=== PATIENT | male | born 1970 | race Caucasian/White ===

== ENCOUNTER → 2016-07-21 | Outpatient (CLI) | payer OTHER ==
[~2016-07-21] MED LIST: CLON2TAB; DEPA500T; DEPA500T2
--- NOTE | 2016-07-21 11:50 | REP ---
Clinical: Trauma. Technique: AP, lateral, bilateral oblique views right first digit. Findings: The osseous structures and joint spaces are intact and normal. There is no evidence for acute fracture or dislocation. Surrounding soft tissues are unremarkable. No subcutaneous emphysema or radiodense foreign body. Impression: No acute fracture or dislocation. Signed by Brendan Schaeffer MD 07/21/2016 11:42 A
== END ==
LOC: M WUC 11:24
PROVIDERS: ATTEND Physician Assistant
DX: S60.011A Contusion of right thumb without damage to nail, initial encounter (principal); X58.XXXA Exposure to other specified factors, initial encounter; Y92.89 Other specified places as the place of occurrence of the external cause; Y93.89 Activity, other specified; Y99.8 Other external cause status

== ENCOUNTER 2016-10-06 18:37 | Emergency (ER) | payer BC, OTHER ==
[~2016-10-06] VITALS: Ht 182.9 cm; Wt 94.3 kg
[~2016-10-06 18:37] MED LIST changes: -DEPA500T2; +DEPA500T2 PO
[2016-10-06 19:21] LABS: BASO # 0.1 K/mm3 (0.0-0.2); BASO % 0.7 % (0.0-1.0); EOS # 0.1 K/mm3 (0.0-0.50); EOS % 1.2 % (0.0-3.0); LARGE UNSTAINED CELL # 0.1 K/mm3 (0.0-0.4); LARGE UNSTAINED CELL % 1.5 % (0.0-4.0); LYMPH # 2.4 K/mm3 (1.5-4.5); LYMPH % 28.9 % (24.0-44.0); MEAN CORPUSCULAR HGB CONC 35.3 g/dl (32.0-36.5); MEAN CORPUSCULAR VOLUME 90.8 fl (80.0-96.0); MONO # 0.5 K/mm3 (0.0-0.8); MONO % 6.2 % (0.0-5.0); NEUTROPHILS # 4.8 K/mm3 (1.8-7.7); NEUTROPHILS % 61.5 % (36.0-66.0); PLATELET COUNT, AUTOMATED 178 k/mm3 (150-450); RED CELL DISTRIBUTION WIDTH 12.4 % (11.5-14.5); WHITE BLOOD COUNT 7.9 K/mm3 (4.0-10.0)
[2016-10-06] MEDS ORDERED: ASPIRIN 325 MG TAB PO ONE (19:30)
[2016-10-06 19:36] LABS: INR 0.92
[2016-10-06 19:41] LABS: ANION GAP 6 MEQ/L (8-16); BLOOD UREA NITROGEN 13 MG/DL (7-18); CALCIUM LEVEL 9.3 MG/DL (8.5-10.1); CARBON DIOXIDE LEVEL 27 MEQ/L (21-32); CHLORIDE LEVEL 110 MEQ/L (98-107); CREATININE FOR GFR 0.83 MG/DL (0.70-1.30); GLOMERULAR FILTRATION RATE > 60.0 (>60); GLUCOSE, FASTING 109 MG/DL (70-105); POTASSIUM SERUM 3.9 MEQ/L (3.5-5.1); SODIUM LEVEL 143 MEQ/L (136-145)
--- NOTE | 2016-10-06 19:49 | REP ---
Clinical: Chest pain. Technique: PA and lateral. Comparison: 10/17/2008. Findings: Mediastinum and cardiac silhouette are normal. Cannot exclude coarsened markings and very subtle patchy lower lobe infiltrates suggesting bronchitis and atelectasis. No effusion. No pneumothorax. Skeletal structures intact. Impression: Findings suggest bronchitis and atelectasis. Signed by Brendan Schaeffer MD 10/06/2016 07:41 P
[2016-10-06] MEDS ORDERED: ASPI81TA85 PO (20:50)
[2016-10-06 20:53] VITALS: BP 123/73
--- NOTE | 2016-10-07 16:36 | ECGEPIP ---
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
== END 2016-10-06 21:05 | disposition home or self-care (01) ==
LOC: M ED 19:44
DX: R07.89 Other chest pain (principal)

== ENCOUNTER 2016-11-09 19:25 | Emergency (ER) | payer OTHER ==
[~2016-11-09] VITALS: Ht 182.9 cm; Wt 93.0 kg
[~2016-11-09 19:25] MED LIST changes: +ASPI81TA85 PO
[2016-11-09] MEDS ORDERED: KETOROLAC 30 MG/ML VIAL (J1885) IV ONE (20:00)
--- NOTE | 2016-11-09 21:00 | REPUSA ---
CT of the lumbar spine without contrast Clinical history: Pain. Technique: Multiple axial CT images were obtained through the lumbar spine without administration of contrast. Coronal and sagittal 3-D reconstructed images were also obtained. Findings: The lumbar vertebral bodies are in satisfactory positioning and alignment. No fractures or dislocatio ns are demonstrated. Intervertebral disc spaces are well-maintained. There is no evidence of facet jacobson bluxation. The neural foramen appear grossly patent. The spinal canal demonstrates normal caliber and contour without evidence of spinal stenosis. The surrounding soft tissues are within normal limits. Impression: Unremarkable CT examination of the lumbar spine.
[2016-11-09] MEDS ORDERED: KETO10TAB PO (21:05)
[2016-11-09] MEDS ORDERED: HYDROmorphone HCL 1 MG/ML SYRINGE (J1170) IM ONE (21:30)
[2016-11-09 22:00] VITALS: BP 127/69
== END 2016-11-09 22:02 | disposition home or self-care (01) ==
LOC: EDBD 19:25 → M ED 20:12
DX: S39.012A Strain of muscle, fascia and tendon of lower back, initial encounter (principal); X50.0XXA Overexertion from strenuous movement or load, initial encounter; Y92.018 Other place in single-family (private) house as the place of occurrence of the external cause; Y93.89 Activity, other specified; Y99.8 Other external cause status; R56.9 Unspecified convulsions; Z79.899 Other long term (current) drug therapy
CPT/HCPCS: 72131; 96372; 96374; 99283; J1170; J1885

== ENCOUNTER 2016-12-23 17:18 | Observation (INO) | payer OTHER ==
[~2016-12-23] VITALS: Ht 188 cm; Wt 90.5 kg
[~2016-12-23 17:18] MED LIST changes: +KETO10TAB PO
[2016-12-23] MEDS ORDERED: ALEV220C2 PO (17:40)
[2016-12-23] MEDS ORDERED: TIZANIDINE (17:40)
[2016-12-23 18:26] LABS: BASO % 0.6 % (0.0-1.0); EOS # 0.1 K/mm3 (0.0-0.50); EOS % 0.9 % (0.0-3.0); LARGE UNSTAINED CELL # 0.1 K/mm3 (0.0-0.4); LARGE UNSTAINED CELL % 1.3 % (0.0-4.0); LYMPH # 1.7 K/mm3 (1.5-4.5); LYMPH % 21.7 % (24.0-44.0); MEAN CORPUSCULAR HEMOGLOBIN 32.2 pg (27.0-33.0); MEAN CORPUSCULAR HGB CONC 34.6 g/dl (32.0-36.5); MEAN CORPUSCULAR VOLUME 92.9 fl (80.0-96.0); MONO # 0.5 K/mm3 (0.0-0.8); MONO % 6.7 % (0.0-5.0); NEUTROPHILS # 5.3 K/mm3 (1.8-7.7); NEUTROPHILS % 68.8 % (36.0-66.0); PLATELET COUNT, AUTOMATED 161 k/mm3 (150-450); RED CELL DISTRIBUTION WIDTH 12.7 % (11.5-14.5); WHITE BLOOD COUNT 7.7 K/mm3 (4.0-10.0)
[2016-12-23 18:38] LABS: BLOOD UREA NITROGEN 15 MG/DL (7-18); CALCIUM LEVEL 8.7 MG/DL (8.5-10.1); CHLORIDE LEVEL 109 MEQ/L (98-107); CREATININE FOR GFR 0.98 MG/DL (0.70-1.30); GLUCOSE, FASTING 110 MG/DL (70-105); POTASSIUM SERUM 3.7 MEQ/L (3.5-5.1); SODIUM LEVEL 139 MEQ/L (136-145)
[2016-12-23] MEDS: NS 1,000 ML IV SCH (18:47)
[2016-12-23] MEDS ORDERED: VALPROATE SOD INJ 500 MG in D5W 50 ML IV ONE (19:00)
[2016-12-23] MEDS ORDERED: LORazepam 2 MG/ML VIAL (J2060) As Ordered ONE (19:06)
[2016-12-23] MEDS ORDERED: LORazepam 2 MG/ML VIAL (J2060) IV STA (19:11)
[2016-12-23] MEDS ORDERED: VALPROATE SOD INJ 1,000 MG in D5W 50 ML IV ONE (19:15)
[2016-12-23] MEDS ORDERED: DIVA500T3 PO (19:28)
[2016-12-23] MEDS ORDERED: TIZA4CAP3 PO (19:28)
[2016-12-23] MEDS ORDERED: KETO10TAB PO (19:28)
--- NOTE | 2016-12-23 19:43 | ECGEPIP ---
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 RBBB SIMILAR TO 10/06/16 Electronically Signed On 12-23-2016 19:43:27 EDT by Hood Mock
[2016-12-23] MEDS ORDERED: LORazepam 2 MG/ML VIAL (J2060) IV PRN (20:30)
[2016-12-23] MEDS ORDERED: tiZANidine 4 MG TAB PO PRN (20:30)
[2016-12-23] MEDS ORDERED: KETOROLAC TROMETHAMINE 10 MG TAB PO PRN (20:30)
--- NOTE | 2016-12-23 20:31 | REP ---
Head CT without contrast: History: CVA. Comparison study: December 20, 2009. CT findings: Bone window settings demonstrate an intact bony calvarium. There is no evidence of skull fracture or incidental bony calvarial lesion. The visualized paranasal sinuses appear clear. No intraorbital abnormality is seen. On soft tissue window setting images; the lateral, third, and fourth ventricles are normal in size and position. Rogers-white differentiation pattern is normal above and below the tentorium. There are is no evidence of intracranial hemorrhage. No mass, edema, infarction, or midline shift is seen. No extra-axial fluid collection is appreciated. Impression: Negative noncontrast head CT. Signed by Medhat Judd MD 12/24/2016 07:42 A
[2016-12-23 20:32] LABS: ANION GAP 9 MEQ/L (8-16); CARBON DIOXIDE LEVEL 21 MEQ/L (21-32)
--- NOTE | 2016-12-23 20:33 | REP ---
Maxillofacial CT study without contrast: History: CVA. Comparison CT study is from December 20, 2009. Technique: Helical scanning is acquired. 3 mm axial images are reformatted. Coronal and sagittal multiplanar reformation images are generated. CT findings: Maxillary, ethmoid, frontal and sphenoid sinuses are clear. Mastoid aeration is normal and symmetric. No fracture is seen. Bony nasal septum deviates to the right with a septal beak. Nasal turbinate soft tissues are symmetric. No intraorbital abnormality is seen. No periorbital soft tissue abnormalities observed. There is some soft tissue swelling anteriorly over the maxillary teeth in the region of the upper lip. Impression: Rightward nasal septal deviation. Soft tissue swelling in the region of the upper lip to the right of midline. No fracture. Otherwise unremarkable maxillofacial CT study. Signed by Medhat Judd MD 12/24/2016 07:42 A
--- NOTE | 2016-12-23 20:38 | REP ---
Sitting AP chest x-ray: Single view. History: CVA. Comparison chest x-ray October 06, 2016. Findings: EKG monitoring electrodes overlie the chest. Lungs are well inflated and clear. Cardiomediastinal silhouette is unremarkable. No bony abnormalities seen. Pleural angles are sharp. Impression: No active disease. Signed by Medhat Judd MD 12/24/2016 07:43 A
[2016-12-23] MEDS ORDERED: DIVALPROEX 500 MG TAB PO SCH (21:00)
[2016-12-23 22:05] VITALS: BP 157/76
--- NOTE | 2016-12-23 22:45 | HPE ---
DATE OF ADMISSION: 12/23/2016 PRIMARY CARE PROVIDER: Zoie Maravilla, nurse practitioner. NEUROLOGY CONSULTED: Dr. Agudelo. CHIEF COMPLAINT: Seizure. HISTORY OF PRESENT ILLNESS: This is a 46-year-old male patient with underlying medical history of seizure disorder diagnosed when patient was 18 years old, depression, smoking. The patient also sees Dr. Vladislav Terry. As per patient, the patient was outside, traveling, working for a week and has not been taking the patient's Depakote. Subsequently the patient returned home and was shopping with the . The went in to put back the groceries, and came out and saw the patient fall down on the driveway pavement with blood around his face, with significant blood around the nose and mouth. The patient has a history of nose bone fracture, and the episode only lasted about 2-3 minutes with urinary incontinence, tongue biting. No foaming. Time was around 4:30 when it happened. Subsequently the patient was brought to the hospital. In the emergency room (ER), the patient had another episode, was given Depakote intravenous (IV). Case was discussed with Dr. Agudelo. CT scan of the maxillofacial and head shows soft tissue swelling but no fractures. The patient is postictal. Given Ativan in the emergency room 2 mg, and 1500 mg of Depakote IV. The patient denies any chest pain, pressure or discomfort. Reported facial pain, tongue pain. Denies any vision change or any weakness. Last seizure was six years ago. The patient has been well controlled up until now. Dr. Terry has been decreasing the patient's Depakote from 2000 mg to 1000 a year ago, and the patient tolerated the dose for the past year, but has not taken any Depakote for one week. Denies any abdominal pain, fevers, chills, nausea or vomiting. No respiratory distress. ALLERGIES: No known drug allergies. PAST MEDICAL HISTORY: 1. Seizure disorder. 2. Depression. 3. Smoker. PAST SURGICAL HISTORY: 1. Ear surgery. 2. Appendectomy. SOCIAL HISTORY: The patient drinks 1-2 beers every two weeks, smokes one pack per day for many years. Denies any other illicit drug use. FAMILY HISTORY: No family history of neurological disorder. REVIEW OF SYSTEMS: Limited secondary to patient's mental status. Reported facial pain due to trauma, tongue pain, urinary incontinence. All other review of systems are negative. HOME MEDICATIONS: - Aleve 220 mg by mouth twice a day as needed - Depakote 1000 mg by mouth at bedtime - ketorolac 10 mg by mouth every eight hours as needed - tizanidine 4 mg by mouth three times a day as needed PHYSICAL EXAMINATION: VITAL SIGNS: Temperature 99.1, pulse 100, respirations 12, blood pressure 118/68, pulse oximetry 95% on room air. GENERAL: Patient alert and oriented times three, but is currently postictal after the seizure episode in the emergency room. HEENT: Swelling around the eye with bruising all over the patient's face bilaterally. Dried blood around the patient's nose and around the patient's mouth. Tongue biting. NECK: Supple. PULMONARY: Bilaterally clear to auscultation. CARDIAC: Regular rate and rhythm. ABDOMEN: Soft, nontender, nondistended. Positive bowel sounds. EXTREMITIES: No edema bilateral lower extremities. Able to move all four extremities. NEUROLOGIC: Cranial nerves II through XII grossly intact. No focal deficits. LABORATORY DATA: WBC 7.7, hemoglobin and hematocrit 15.4 over 44.5, platelets 161. Chemistry: Sodium 139, potassium 3.7, chloride 109, bicarbonate 21, BUN 15, creatinine 0.98. CK is 1193. Valproic acid 3.3. IMAGING: CT scan of the head negative. CT scan of maxillofacial shows rightward nasal septal deviation; as per family was chronic. Soft tissue swelling. ASSESSMENT AND PLAN: This is a 46-year-old male patient with underlying medical history of depression, seizure disorder, smoker, presented with two episodes of seizure. 1. Seizure, likely secondary to poor medication compliance. IV Depakote given in the emergency department (ED). Will continue Depakote 1000 mg by mouth at bedtime, electroencephalogram (EEG), neurology consulted. Seizure precautions. Fall precautions. Aspiration precautions. 2. Rhabdomyolysis likely secondary to seizure. IV fluids. Followup creatine kinase (CK). 3. Depression. Continue current medication. 4. Smoking. Counseling provided, refused nicotine patch. 5. Deep venous thrombosis (DVT) prophylaxis. Avoid pharmacological anticoagulation given significant facial injuries and tongue biting, with significant bleeding. Venodyne sequential compression devices. DISPOSITION: Pending clinical improvement. Neurology consultation.
[2016-12-23 23:51] VITALS: BP 128/75
[2016-12-24] MEDS: NS 1,000 ML IV SCH (03:46)
[2016-12-24 04:00] VITALS: BP 104/66
[2016-12-24 05:31] LABS: MEAN CORPUSCULAR HEMOGLOBIN 32.2 pg (27.0-33.0); MEAN CORPUSCULAR HGB CONC 34.8 g/dl (32.0-36.5); MEAN CORPUSCULAR VOLUME 92.7 fl (80.0-96.0); WHITE BLOOD COUNT 8.7 K/mm3 (4.0-10.0)
[2016-12-24 05:46] LABS: ANION GAP 8 MEQ/L (8-16); BLOOD UREA NITROGEN 12 MG/DL (7-18); CALCIUM LEVEL 8.2 MG/DL (8.5-10.1); CARBON DIOXIDE LEVEL 22 MEQ/L (21-32); CHLORIDE LEVEL 111 MEQ/L (98-107); CREATININE FOR GFR 0.79 MG/DL (0.70-1.30); GLOMERULAR FILTRATION RATE > 60.0 (>60); GLUCOSE, FASTING 90 MG/DL (70-105); MAGNESIUM LEVEL 2.1 MG/DL (1.8-2.4); POTASSIUM SERUM 3.9 MEQ/L (3.5-5.1); SODIUM LEVEL 141 MEQ/L (136-145)
[2016-12-24 08:00] VITALS: BP 125/77; O2SAT 98
--- NOTE | 2016-12-24 16:26 | DS.PDOC ---
Discharge Summary General Date of Admission Dec 23, 2016 at 20:21 Date of Discharge 12/24/16 Primary Care Physician: RAUDEL LAMA Attending Physician: LEONARDO MATHEWS MD Specialist/Consultants Involve: AJIT AGUDELO MD Discharge Summary Primary care providers: NORMAN Macdonald. Vladislav Terry M.D. PROCEDURES PERFORMED DURING STAY: None ADMITTING DIAGNOSES: 1. Seizure, likely secondary to poor medicine compliance. 2. Rhabdomyolysis. 3. Depression. DISCHARGE DIAGNOSES: 1. Seizure, likely secondary to poor medication compliance.. 2. Rhabdomyolysis. 3. Depression. COMPLICATIONS/CHIEF COMPLAINT: Seizure. HISTORY OF PRESENT ILLNESS: Patient is a 46-year-old male with past medical history is difficult for her seizure disorder, depression, to contain addiction presents to the ER after having a seizure episode this afternoon. Patient had been diagnosed with a seizure disorder when he was 18 years old. Patient had recently obtained a new job. He been traveling for the past week for work. Patient had not brought his Depakote with them. He had not taken it for the past week. Patient was regularly taking prior to this. Patient was outside in the driveway. Patient's was in the hospital and why groceries and when she cannot size she saw the patient had fallen down on the driveway pavement and had blood around his face. Patient has history of bone fractures and the episode lasted a couple minutes with urinary incontinence and tongue biting. No foaming at the mouth. He was around 4:30 afternoon. Patient was then brought to the ER. Patient had another episode in the ER and was given IV Depakote. This case was consulted with Dr. Agudelo, neurologist. CT scan of the face and head showed soft tissue swelling but no fractures. Patient was post ictal upon admission. Patient was also given Ativan in the ER. Patient denied any vision changes or weakness. Last reported seizure was approximately 6-7 years ago. Patient well controlled on medication until now. HOSPITAL COURSE: Patient was admitted and started the workup for his seizures. Patient was placed on thousand milligrams oral Depakote. Patient was also scheduled to be given Ativan when necessary and Toradol when necessary for pain. Dr. Agudelo was counseled in the ER. Plan was to have Dr. Agudelo assess the patient's while in the hospital. Patient did not have any further seizure activity overnight. Patient did have elevated creatine kinase on labs. Patient had rhabdomyolysis likely secondary to seizure and was started on IV fluids. Patient's home medication for depression was continued. Patient became agitated later in the morning and requested to leave the hospital. The risks and benefits were discussed about staying in the hospital versus leaving. Patient agreed to understand the risks and still wanted to leave anyway. Patient signed an AMA agreements and left the hospital. Patient was told about the risk of driving post seizures and responsibility. Patient agreed to return to the ER if symptoms worsen. DISCHARGE MEDICATIONS: Please see below. ALLERGIES: Please see below. PHYSICAL EXAMINATION ON DISCHARGE: VITAL SIGNS: Please see below. GENERAL: Comfortable. No acute respiratory distress. Agitated about being in the hospital. HEENT: Ecchymosis on nasal bridge. Dry blood around patient's mouth and nose. Tongue shows evidence of bite on right side. Some swelling on his face bilaterally. NECK: Supple. No lymphadenopathy. CARDIOVASCULAR EXAMINATION: Normal S1 and S2. No clicks rubs gallops or murmurs. RESPIRATORY EXAMINATION: Clear to auscultation. No wheezing or rales. ABDOMINAL EXAMINATION: Bowel sounds heard auscultation. No tenderness to palpation. EXTREMITIES: No lotion any edema. Radial pulses 2 out of 4 bilaterally. SKIN: No new rashes or lesions. NEUROLOGICAL EXAMINATION: Speech intact. Cranial nerves II through XII intact. [id number] intact. PSYCHIATRIC EXAMINATION: Agitated. LABORATORY DATA: Please see below. IMAGING: Maxillofacial CT scan showed rightward nasal septal deviation. Soft tissue swelling in the region of the upper lip to the right of midline. No fracture. Otherwise unremarkable maxillofacialCT study. Head CT showed negative noncontrast head CT. Chest radiograph showed no active disease. PROGNOSIS: AGAINST MEDICAL ADVICE ACTIVITY: As tolerated. Patient was cautioned about driving. DIET: As tolerated. DISCHARGE PLAN: AGAINST MEDICAL ADVICE DISPOSITION: Against Medical Advice. DISCHARGE INSTRUCTIONS: 1. AGAINST MEDICAL ADVICE 2. Patient is return to ER if symptoms worsen DISCHARGE CONDITION: AGAINST MEDICAL ADVICE TIME SPENT ON DISCHARGE: Greater than 30 minutes. Vital Signs/I&Os Vital Signs Date Time Temp Pulse Resp B/P (MAP) Pulse Ox O2 Delivery O2 Flow Rate FiO2 12/24/16 08:30 96 Room Air 12/24/16 08:00 99.8 104 18 125/77 (93) 2.0 I&O- Last 24 Hours up to 6 AM 12/24/16 06:00 Intake Total 1555 ml Balance 1555 ml Laboratory Data Labs 24H Laboratory Tests 2 12/23/16 17:42: White Blood Count 7.7, Red Blood Count 4.79, Hemoglobin 15.4, Hematocrit 44.5, Mean Corpuscular Volume 92.9, Mean Corpuscular Hemoglobin 32.2, Mean Corpuscular Hemoglobin Concent 34.6, Red Cell Distribution Width 12.7, Platelet Count 161, Neutrophils (%) (Auto) 68.8H, Lymphocytes (%) (Auto) 21.7L, Monocytes (%) (Auto) 6.7H, Eosinophils (%) (Auto) 0.9, Basophils (%) (Auto) 0.6 , Neutrophils # (Auto) 5.3, Lymphocytes # (Auto) 1.7, Monocytes # (Auto) 0.5, Eosinophils # (Auto) 0.1, Basophils # (Auto) 0.0, Large Unclassified Cells % 1.3 , Large Unclassified Cells # 0.1, Prothrombin Time 13.3, Prothromb Time International Ratio 1.00, Activated Partial Thromboplast Time 22.8L, Anion Gap 9 , Blood Urea Nitrogen 15, Creatinine 0.98, Sodium Level 139, Potassium Level 3.7 , Chloride Level 109H, Carbon Dioxide Level 21, Calcium Level 8.7, Total Creatine Kinase 1193H, Creatine Kinase MB 3.7H, Creatine Kinase MB Relative Index 0.31, Troponin I < 0.02, Valproic Acid (Depakene) Level 3.3L 12/23/16 23:46: Total Creatine Kinase 1153H, Creatine Kinase MB 8.4H, Creatine Kinase MB Relative Index 0.72, Troponin I 0.04# 12/24/16 04:53: Anion Gap 8, Blood Urea Nitrogen 12, Creatinine 0.79, Sodium Level 141, Potassium Level 3.9, Chloride Level 111H, Carbon Dioxide Level 22, Calcium Level 8.2L, Total Creatine Kinase 1157H, Creatine Kinase MB 10.7H, Creatine Kinase MB Relative Index 0.92, Troponin I 0.02#, Glomerular Filtration Rate > 60.0, Magnesium Level 2.1 CBC/BMP Laboratory Tests 12/23/16 17:42 Red Blood Count 4.79, Mean Corpuscular Volume 92.9, Mean Corpuscular Hemoglobin 32.2, Mean Corpuscular Hemoglobin Concent 34.6, Red Cell Distribution Width 12.7 , Neutrophils (%) (Auto) 68.8 H, Lymphocytes (%) (Auto) 21.7 L, Monocytes (%) ( Auto) 6.7 H, Eosinophils (%) (Auto) 0.9, Basophils (%) (Auto) 0.6, Neutrophils # (Auto) 5.3, Lymphocytes # (Auto) 1.7, Monocytes # (Auto) 0.5, Eosinophils # ( Auto) 0.1, Basophils # (Auto) 0.0, Calcium Level 8.7, Total Creatine Kinase 1193 H 12/24/16 04:53 Red Blood Count 4.41, Mean Corpuscular Volume 92.7, Mean Corpuscular Hemoglobin 32.2, Mean Corpuscular Hemoglobin Concent 34.8, Red Cell Distribution Width 13.0 , Calcium Level 8.2 L, Total Creatine Kinase 1157 H Discharge Medications Scheduled Divalproex Sodium (Divalproex Sodium Dr) 500 Mg Tab, 1,000 MG PO QHS, (Reported) Scheduled PRN (Aleve) 220 Mg Cap, 220 MG PO BID PRN for PAIN OR FEVER, (Reported) Ketorolac Tromethamine (Ketorolac Tromethamine) 10 Mg Tab, 10 MG PO Q8H PRN for PAIN, (Reported) Tizanidine Hydrochloride (Tizanidine HCl) 4 Mg Cap, 4 MG PO TID PRN for SPASMS, (Reported) Allergies Coded Allergies: No Known Drug Allergy (Verified Allergy, Unknown, 10/09/12) GME ATTESTATION GME ATTESTATION My preceptor for this patient encounter was Dr. Mathews and he was physically present in the building during the encounter and was fully available. As needed , all aspects of the patient interview, examination, medical decision making process, and medical care plan development were reviewed and approved by the preceptor. Preceptor is aware and concurs with the plan as stated in the body of this note and will attest to such by his/her co-signature. LEONARDO PAYNE DO Dec 24, 2016 16:26
== END 2016-12-24 10:47 | disposition left against medical advice (07) ==
LOC: M ED 18:29 → M ED INP 20:21 → M PCU 20:47 → M ED INP 21:13 → M PCU 22:01
PROVIDERS: ADMIT Hospitalist; ATTEND Internal Medicine
DX: G40.909 Epilepsy, unspecified, not intractable, without status epilepticus (principal); M62.82 Rhabdomyolysis; F32.9 Major depressive disorder, single episode, unspecified; F17.210 Nicotine dependence, cigarettes, uncomplicated; Z91.138 Patient's unintentional underdosing of medication regimen for other reason; Z79.899 Other long term (current) drug therapy

== ENCOUNTER → 2019-04-01 | Outpatient (CLI) | payer BC, OTHER, SELFPAY ==
[~2019-04-01] MED LIST changes: +ALEV220C2 PO; +DIVA500T94 PO; +TIZA4CAP PO; +TIZANIDINE
[2019-04-01 12:54] LABS: BASO # 0.1 10^3/uL (0.0-0.2); BASO % 1.1 % (0.0-1.0); EOS # 0.1 10^3/uL (0.0-0.5); EOS % 1.1 % (0.0-3.0); HEMATOCRIT 47.8 % (42.0-52.0); HEMOGLOBIN 16.6 g/dl (13.5-17.5); LYMPH # 2.5 10^3/uL (1.5-5.0); LYMPH % 35.2 % (24.0-44.0); MEAN CORPUSCULAR HEMOGLOBIN 31.6 pg (27.0-33.0); MEAN CORPUSCULAR HGB CONC 34.7 g/dl (32.0-36.5); MONO # 0.6 10^3/uL (0.0-0.8); MONO % 7.8 % (0.0-5.0); NEUTROPHILS # 3.8 10^3/uL (1.5-8.5); NEUTROPHILS % 54.4 % (36.0-66.0); PLATELET COUNT, AUTOMATED 186 10^3/uL (150-450); RED BLOOD COUNT 5.25 10^6/uL (4.30-6.10); WHITE BLOOD COUNT 7.1 10^3/uL (4.0-10.0)
[2019-04-01 13:21] LABS: ALBUMIN 3.7 GM/DL (3.2-5.2); ALT/SGPT 24 U/L (12-78); BILIRUBIN,TOTAL 0.6 MG/DL (0.2-1.0); BLOOD UREA NITROGEN 13 MG/DL (7-18); C REACTIVE PROTEIN QUANTITATIV < 0.30 MG/DL (0.00-0.30); CARBON DIOXIDE LEVEL 25 MEQ/L (21-32); CHLORIDE LEVEL 108 MEQ/L (98-107); CREATININE FOR GFR 0.87 MG/DL (0.70-1.30); FREE T4 0.83 NG/DL (0.76-1.46); GLOMERULAR FILTRATION RATE > 60.0 (>60); GLUCOSE, FASTING 88 MG/DL (70-100); POTASSIUM SERUM 4.5 MEQ/L (3.5-5.1); SODIUM LEVEL 141 MEQ/L (136-145); TOTAL PROTEIN 7.2 GM/DL (6.4-8.2)
[2019-04-01 13:32] LABS: ERYTHROCYTE SEDIMENTATION RATE 1 mm/hr (0-15)
--- NOTE | 2019-04-02 03:47 | REP ---
Clinical: Shortness of breath . Comparison: 10/06/2016 . Technique: PA and lateral. Findings: The mediastinum and cardiac silhouette are normal. The lung haile are clear and without acute consolidation, effusion, or pneumothorax. The skeletal structures are intact and normal. Impression: 1. No acute cardiopulmonary process. Electronically Signed by Brendan Schaeffer MD 04/02/2019 03:38 A
[2019-04-03 00:06] LABS: EBV AB TO NUCLEAR ANTIGEN <18.0 U/mL (0.0-17.9); EBV VIRAL CAPSID AG IgG >600.0 U/mL (0.0-17.9); EBV VIRAL CAPSID AG IgM <36.0 U/mL (0.0-35.9); Lyme Disease IgG/IgM Antibodie <0.91 ISR (0.00-0.90); Lyme Disease IgM Ab Quantitati <0.80 index (0.00-0.79)
== END ==
LOC: M WUC 10:20
PROVIDERS: ATTEND Physician Assistant
DX: R53.83 Other fatigue (principal); R06.02 Shortness of breath

== ENCOUNTER 2019-10-04 12:06 | Emergency (ER) | payer BC ==
[~2019-10-04] VITALS: Ht 182.9 cm; Wt 97.9 kg
[2019-10-04 12:07] VITALS: BP 149/79
[2019-10-04] MEDS ORDERED: DIVA250T67 (12:19)
[2019-10-04] MEDS ORDERED: ACETAMINOPHEN 325 MG TAB PO ONE (12:45)
--- NOTE | 2019-10-04 14:42 | REP ---
CT BRAIN WITHOUT CONTRAST: HISTORY: Injury in a fall. 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 No skull fracture is seen but there is a sizable hematoma in the right supraorbital region. Bony calvarium is intact. Visualized paranasal sinuses are clear. There is minimal mucosal thickening in the maxillary sinuses. No intraorbital hematoma is seen. On soft tissue window settings, lateral, third, fourth ventricles are normal in size and position. Rogers-white differentiation pattern is normal above below the tentorium. There is no evidence of intracranial hemorrhage. There is no evidence of contusion, mass, extra-axial fluid collection, or midline shift. IMPRESSION: Right supraorbital soft tissue hematoma. No skull fracture or intracranial injury seen. Electronically Signed by Medhat Judd MD 10/04/2019 02:51 P
--- NOTE | 2019-10-04 14:43 | REP ---
MAXILLOFACIAL CT STUDY WITHOUT CONTRAST: HISTORY: Pain and swelling after a fall. FINDINGS: There are mild areas of mucosal thickening affecting the maxillary sinuses bilaterally. The visualized paranasal sinuses are otherwise clear. Mastoid air cells are under pneumatized developmentally. No intraorbital hematoma is seen. A right periorbital scalp hematoma is seen inferior to and superior to the right orbit. Ocular globes are normal and symmetric. There is no evidence of medial or inferior wall blowout fracture. Orbital margins appear intact. Bony nasal septum is intact and deviates to the right with a septal beak. No nasal bone fracture is seen. Inferior maxillary spine appears intact. IMPRESSION: No facial fractures seen. Right periorbital and preseptal hematoma. Electronically Signed by Medhat Judd MD 10/04/2019 02:51 P
== END 2019-10-04 13:28 | disposition home or self-care (01) ==
LOC: M ED 12:06
DX: S00.11XA Contusion of right eyelid and periocular area, initial encounter (principal); W19.XXXA Unspecified fall, initial encounter; Y92.9 Unspecified place or not applicable; Y93.89 Activity, other specified; Y99.9 Unspecified external cause status; R56.9 Unspecified convulsions; K21.9 Gastro-esophageal reflux disease without esophagitis; F41.9 Anxiety disorder, unspecified; F32.9 Major depressive disorder, single episode, unspecified; M54.30 Sciatica, unspecified side; F17.200 Nicotine dependence, unspecified, uncomplicated; Z88.8 Allergy status to other drugs, medicaments and biological substances

== ENCOUNTER → 2019-10-07 | Outpatient (CLI) | payer BC ==
[~2019-10-07] MED LIST changes: +DIVA250T67
[2019-10-07 11:23] LABS: BASO # 0.1 10^3/uL (0.0-0.2); BASO % 0.9 % (0.0-1.0); EOS # 0.1 10^3/uL (0.0-0.5); EOS % 0.9 % (0.0-3.0); HEMATOCRIT 48.7 % (42.0-52.0); LYMPH # 2.2 10^3/uL (1.5-5.0); LYMPH % 32.8 % (24.0-44.0); MEAN CORPUSCULAR HEMOGLOBIN 32.4 pg (27.0-33.0); MEAN CORPUSCULAR HGB CONC 34.9 g/dl (32.0-36.5); MEAN CORPUSCULAR VOLUME 92.9 fl (80.0-96.0); MONO # 0.6 10^3/uL (0.0-0.8); MONO % 8.6 % (0.0-5.0); NEUTROPHILS # 3.8 10^3/uL (1.5-8.5); NEUTROPHILS % 56.5 % (36.0-66.0); PLATELET COUNT, AUTOMATED 211 10^3/uL (150-450); RED BLOOD COUNT 5.24 10^6/uL (4.30-6.10); WHITE BLOOD COUNT 6.7 10^3/uL (4.0-10.0)
[2019-10-07 11:37] LABS: BLOOD UREA NITROGEN 11 MG/DL (7-18); CARBON DIOXIDE LEVEL 28 MEQ/L (21-32); CHLORIDE LEVEL 108 MEQ/L (98-107); CREATININE FOR GFR 0.79 MG/DL (0.70-1.30); GLOMERULAR FILTRATION RATE > 60.0 (>60); GLUCOSE, FASTING 81 MG/DL (70-100); POTASSIUM SERUM 4.4 MEQ/L (3.5-5.1); SODIUM LEVEL 140 MEQ/L (136-145)
[2019-10-07 11:38] LABS: ALBUMIN 3.8 GM/DL (3.2-5.2); ALT/SGPT 31 U/L (12-78); BILIRUBIN,TOTAL 0.5 MG/DL (0.2-1.0); CALCIUM LEVEL 9.2 MG/DL (8.5-10.1); CHOLESTEROL LEVEL 164 MG/DL (<200); FREE T4 1.04 NG/DL (0.76-1.46); HDL CHOLESTEROL 31 MG/DL (>40); LDL CHOLESTEROL 96 MG/DL (<100); NON-HDL-C 133 MG/DL; TOTAL PROTEIN 7.3 GM/DL (6.4-8.2); TRIGLYCERIDES LEVEL 185 MG/DL (<150); VALPROIC ACID (DEPAKOTE) 98.3 UG/ML (50.0-100.0)
[2019-10-08 14:06] LABS: PSA TOTAL 0.8 ng/mL (0.0-4.0)
== END ==
LOC: M LRY 09:06
PROVIDERS: ATTEND Physician Assistant
DX: Z12.5 Encounter for screening for malignant neoplasm of prostate (principal); Z13.220 Encounter for screening for lipoid disorders; R53.83 Other fatigue; G40.409 Other generalized epilepsy and epileptic syndromes, not intractable, without status epilepticus

== ENCOUNTER → 2019-12-09 | Outpatient (CLI) | payer BC | LOC: M LRY 15:52 | PROVIDERS: ATTEND Physician Assistant | DX: L56.8 Other specified acute skin changes due to ultraviolet radiation (principal) ==

== ENCOUNTER 2020-01-13 00:56 | Inpatient (IN) | payer BC ==
[~2020-01-13] VITALS: Ht 182.9 cm; Wt 96.6 kg
[~2020-01-13 00:56] MED LIST changes: -ASPI81TA85 PO; +ASPI81TA86 PO; -DIVA250T67; +DIVA250T67 PO
[2020-01-13 01:24] LABS: HEMATOCRIT 47.9 % (42.0-52.0); HEMOGLOBIN 16.5 g/dl (13.5-17.5); MEAN CORPUSCULAR HEMOGLOBIN 31.7 pg (27.0-33.0); MEAN CORPUSCULAR HGB CONC 34.4 g/dl (32.0-36.5); MEAN CORPUSCULAR VOLUME 92.1 fl (80.0-96.0); PLATELET COUNT, AUTOMATED 184 10^3/uL (150-450); WHITE BLOOD COUNT 7.4 10^3/uL (4.0-10.0)
[2020-01-13 02:04] LABS: ACETAMINOPHEN LEVEL < 2.0 UG/ML (10.0-30.0); ALBUMIN 3.8 GM/DL (3.2-5.2); ALT/SGPT 32 U/L (12-78); AMPHETAMINES LEVEL URINE NEGATIVE (NEGATIVE); BARBITURATES URINE NEGATIVE (NEGATIVE); BENZODIAZEPINES URINE NEGATIVE (NEGATIVE); BILIRUBIN,DIRECT < 0.1 MG/DL (0.0-0.2); BILIRUBIN,TOTAL 0.2 MG/DL (0.2-1.0); BLOOD UREA NITROGEN 12 MG/DL (7-18); CALCIUM LEVEL 8.7 MG/DL (8.5-10.1); CANNABINOIDS URINE NEGATIVE (NEGATIVE); CARBON DIOXIDE LEVEL 21 MEQ/L (21-32); CHLORIDE LEVEL 112 MEQ/L (98-107); COCAINE METABOLITE URINE NEGATIVE (NEGATIVE); CREATININE FOR GFR 0.73 MG/DL (0.70-1.30); ETHYL ALCOHOL (ETHANOL) 0.005 % (0.000-0.010); GLOMERULAR FILTRATION RATE > 60.0 (>60); GLUCOSE, FASTING 104 MG/DL (70-100); METHADONE URINE NEGATIVE (NEGATIVE); OPIATES URINE NEGATIVE (NEGATIVE); PHENCYCLIDINE URINE NEGATIVE (NEGATIVE); POTASSIUM SERUM 4.5 MEQ/L (3.5-5.1); SALICYLATE LEVEL 3.7 MG/DL (5.0-30.0); SODIUM LEVEL 140 MEQ/L (136-145); TOTAL PROTEIN 7.5 GM/DL (6.4-8.2); VALPROIC ACID (DEPAKOTE) 73.7 UG/ML (50.0-100.0)
[2020-01-13] MEDS ORDERED: MAALOX 30 ML SUSP *UDC PO PRN (04:15)
[2020-01-13] MEDS ORDERED: MOM 30ML SUSPENSION UDC PO PRN (04:15)
[2020-01-13] MEDS ORDERED: ACETAMINOPHEN TAB 650MG DOSE (2X325MG) PO PRN (04:15)
[2020-01-13] MEDS ORDERED: traZODone 50 MG TAB PO PRN (04:15)
[2020-01-13] MEDS ORDERED: ALEV220T22 PO (05:01)
[2020-01-13 05:22] VITALS: BP 138/87
--- NOTE | 2020-01-13 09:25 | MHHPEPDOC ---
[facility] History & Physical History and Physical DATE OF ADMISSION: Jan 13, 2020 at 04:12 Jose Antonio presents today for concerns regarding his depression. He reports that he was intoxicated and threatened to commit suicide. He had his first consultation with [facility] concerning his agitation. He reports that he experiences many nightmares, and he is unaware of what the dream is. MEDICATIONS: He reports that he taken Lexapro but notes that it upset his stomach, and he felt like it was ineffective. MEDICAL HISTORY: He was recently diagnosed with PTSD. FAMILY HISTORY: No family history of mental health issues. Objective Appearance: Well nourished. Well groomed. Affect: Full range. Appropriate to context. Mood: Mildly dysthymic. Appropriately reactive. Generally good. Thought Form: Linear and goal directed. Thought Content: No evidence of delusions. No thoughts of self harm. No evidence of suicidal ideation. No evidence of aggressive or homicidal ideation. Judgement: intact as evidenced by decision making in the recent past. Assessment F32.9 Major depressive disorder, single episode, unspecified F43.12 Post-traumatic stress disorder, chronic F10.99 Alcohol use, unspecified with unspecified alcohol-induced disorder F17.210 Nicotine dependence, cigarettes, uncomplicated Plan The risks, benefits as well as common side effects as well as alternative treatments (including non-treatment) were discussed with the patient both in general and for their particular case. The patient selected this option out of a range. He will stay roughly one to two days. Treatment priorities are 1. Risk for suicide 2. Substance abuse 3. Effective coping. Will start on Sertraline. Observe overnight, discharge tomorrow if patient desires as will not meet invol untary criteria. Vital Signs Vital Signs Date Time Temp Pulse Resp B/P (MAP) Pulse Ox O2 Delivery O2 Flow Rate FiO2 01/13/20 08:17 Room Air 01/13/20 05:22 98.2 93 16 138/87 (104) 95 Laboratory Data 24H Labs Laboratory Tests 2 01/13/20 01:15: Nucleated Red Blood Cells % (auto) 0.0, Anion Gap 7L, Glomerular Filtration Rate > 60.0, Calcium Level 8.7, Total Bilirubin 0.2, Direct Bilirubin < 0.1, Aspartate Amino Transf (AST/SGOT) 29, Alanine Aminotransferase (ALT/SGPT) 32, Alkaline Phosphatase 50, Total Protein 7.5, Albumin 3.8, Albumin/Globulin Ratio 1.0, Thyroid Stimulating Hormone (TSH) 1.860, Salicylates Level 3.7L, Urine Opiates Screen NEGATIVE, Urine Methadone Screen NEGATIVE, Acetaminophen Level < 2.0L, Urine Barbiturates Screen NEGATIVE, Valproic Acid (Depakene) Level 73.7, Urine Phencyclidine Screen NEGATIVE, Urine Amphetamines Screen NEGATIVE, Urine Benzodiazepines Screen NEGATIVE, Urine Cocaine Metabolite Screen NEGATIVE, Urine Cannabinoids Screen NEGATIVE, Ethyl Alcohol Level 0.005 CBC/BMP Laboratory Tests 01/13/20 01:15 Medications Scheduled Divalproex Sodium (Divalproex Sodium) 250 Mg Tablet.dr, 750 MG PO BID, (Reported) Scheduled PRN Naproxen Sodium (Aleve) 220 Mg Tablet, 220 MG PO BID PRN for PAIN / FEVER, (Reported) Allergies Coded Allergies: levetiracetam (Verified Allergy, Intermediate, depression, 01/13/20) varenicline (Verified Adverse Reaction, Unknown, seizures, 01/13/20) seizures DALLIN RUIZ DO Jan 13, 2020 09:25
[2020-01-13] MEDS ORDERED: SERTRALINE HCL 25 MG TABLET PO ONE (12:15)
--- NOTE | 2020-01-13 12:26 | HPEPDOC ---
[facility] Medical History & Physical Date of Admission Jan 13, 2020 Date of Service: Jan 13, 2020 Primary Care Physician: LILLIE ANDERSON DO Attending Physician: DALLIN RUIZ DO History and Physical CHIEF COMPLAINT: Psychiatric issues, suicidal ideations and threats HISTORY OF PRESENT ILLNESS: Patient was brought into the emergency department by [facility]. Apparently he has been drinking quite a bit of alcohol over the weekend, at home he had put a knife to his throat threatened to commit suicide, family called 911. In the ED report there is some suspicions that he had also been doing cocaine, however this was found negative on his toxicology screen. Patient states he does not do drugs. CODE STATUS: Full code PAST MEDICAL HISTORY: Seizure Depression Smoker/tobacco abuse Alcoholic/binge drinker on the weekends PAST SURGICAL HISTORY: Right ear surgery SOCIAL HISTORY: Patient states that he smokes 1-1.5 packs per day (30+ years) since he was 18 years old Patient reports that he does not drink on weekdays, but definitely drinks plenty of alcohol "all day on the weekends". When asked to quantify this he says that he goes through at least 4x 30 packs in a weekend (120 beers in 2-3 days). FAMILY HISTORY: He apparently does not associate with his family, he does not know REVIEW OF SYSTEMS: Constitutional: Patient denies fevers, chills, night sweats, recent weight gain/loss. HEENT: Patient denies blurred or double vision, transient visual disturbances, postnasal drip, epistaxis, sore throat, difficulty chewing or swallowing food. Cardiovascular: Patient denies chest discomfort/pain, palpitations, exertional dyspnea, orthopnea, edema of the extremities, claudication. Respiratory: Patient admits to chronic cough, occasional white sputum, and occasionally he has wheeze. Gastrointestinal: Patient denies nausea, vomiting, diarrhea, constipation, abdominal pain, melena, hematochezia, hematemesis, jaundice. PHYSICAL EXAMINATION: General: Awake, alert, oriented 3. He is in no acute distress. HEENT: Head normocephalic atraumatic, conjunctiva are pink, sclera are nonicteric, buccal mucosa is pink and moist with no lesions in the oropharynx. Hearing is grossly intact to conversation. Respiratory: Clear to auscultation bilaterally with no wheezes, rales, or rhonchi. Cardiovascular: Regular rate and rhythm, with no rubs, gallops, or murmur. Abdomen: Soft, nontender, nondistended, no hepatosplenomegaly appreciated. Bowel sounds present. Extremities: 2+ pulses in the radial and dorsalis pedis bilaterally. No evidence of clubbing or cyanosis. ASSESSMENT/PLAN: 1. Psychiatric issues, suicidal ideations and threats -Management per the psychiatric team 2. Alcoholism/binge drinking -He is not showing any signs of withdrawal at this time, we will place him on CIWA protocol 3. Seizure disorder -He states that he has been stable on Depakote for many years, he perhaps has one seizure per year, but prior to being on this medication was having almost 30 seizures per year. We will continue his home dose of Depakote. 4. Tobacco abuse -Smoking cessation recommended, will provide with nicotine patch. Thank you so very much for the kind consultation. Vital Signs Vital Signs Date Time Temp Pulse Resp B/P (MAP) Pulse Ox O2 Delivery O2 Flow Rate FiO2 01/13/20 08:17 Room Air 01/13/20 05:22 98.2 93 16 138/87 (104) 95 Laboratory Data Labs 24H Laboratory Tests 2 01/13/20 01:15: Nucleated Red Blood Cells % (auto) 0.0, Anion Gap 7L, Glomerular Filtration Rate > 60.0, Calcium Level 8.7, Total Bilirubin 0.2, Direct Bilirubin < 0.1, Aspartate Amino Transf (AST/SGOT) 29, Alanine Aminotransferase (ALT/SGPT) 32, Alkaline Phosphatase 50, Total Protein 7.5, Albumin 3.8, Albumin/Globulin Ratio 1.0, Thyroid Stimulating Hormone (TSH) 1.860, Salicylates Level 3.7L, Urine Opiates Screen NEGATIVE, Urine Methadone Screen NEGATIVE, Acetaminophen Level < 2.0L, Urine Barbiturates Screen NEGATIVE, Valproic Acid (Depakene) Level 73.7, Urine Phencyclidine Screen NEGATIVE, Urine Amphetamines Screen NEGATIVE, Urine Benzodiazepines Screen NEGATIVE, Urine Cocaine Metabolite Screen NEGATIVE, Urine Cannabinoids Screen NEGATIVE, Ethyl Alcohol Level 0.005 CBC/BMP Laboratory Tests 01/13/20 01:15 Home Medications Scheduled Divalproex Sodium (Divalproex Sodium) 250 Mg Tablet.dr, 750 MG PO BID Scheduled PRN Naproxen Sodium (Aleve) 220 Mg Tablet, 220 MG PO BID PRN for PAIN / FEVER Allergies Coded Allergies: levetiracetam (Verified Allergy, Intermediate, depression, 01/13/20) varenicline (Verified Adverse Reaction, Unknown, seizures, 01/13/20) seizures A-FIB/CHADSVASC A-FIB History Current/History of A-Fib/PAF?: No Current PO Anticoag Therapy: No MIGUEL WILKINSON DO Jan 13, 2020 12:26
[2020-01-13] MEDS ORDERED: LORazepam 2 MG TAB PO PRN (12:30)
[2020-01-13 12:39] VITALS: BP 122/88
[2020-01-13] MEDS: NICOTINE 21MG/24HR 1 EA TRANSDERMAL TD PRN (12:46)
[2020-01-13] MEDS: MULTIVITAMINS/MINERALS THERAP 1 TAB PO SCH (12:46)
[2020-01-13] MEDS: DIVALPROEX 250 MG TAB PO SCH ×2 (12:46→20:25)
[2020-01-13] MEDS: THIAMINE 100 MG TAB PO SCH ×2 (12:47→20:25)
[2020-01-13] MEDS: FOLIC ACID 1 MG TAB PO SCH (12:47)
[2020-01-13 16:25] VITALS: BP 122/86
[2020-01-14 06:41] VITALS: BP 124/85
[2020-01-14] MEDS: SERTRALINE HCL 25 MG TABLET PO SCH (08:15)
[2020-01-14] MEDS: MULTIVITAMINS/MINERALS THERAP 1 TAB PO SCH (08:15)
[2020-01-14] MEDS: THIAMINE 100 MG TAB PO SCH ×2 (08:15→20:14)
[2020-01-14] MEDS: FOLIC ACID 1 MG TAB PO SCH (08:15)
[2020-01-14] MEDS: DIVALPROEX 250 MG TAB PO SCH ×2 (08:15→20:14)
[2020-01-14] MEDS: NICOTINE 21MG/24HR 1 EA TRANSDERMAL TD PRN (12:28)
[2020-01-14 14:00] VITALS: BP 127/84
[2020-01-14 16:16] VITALS: BP 119/71
--- NOTE | 2020-01-14 17:06 | MHIPN ---
DATE OF SERVICE: 01/14/2020 This patient was admitted after he was brought in by police and the patient apparently was holding a knife to his throat saying that he was going to kill himself. He was acutely intoxicated at that time. Today, the patient admits that he is still feeling depressed. He is denying suicidal thoughts today. However, he has a significant history of alcohol abuse. He says he is on Depakote because he has had withdrawal seizures in the past from withdrawing from alcohol. The patient does continue to feel depressed. MENTAL STATUS EXAMINATION: This patient is alert and oriented times three. Eye contact fair. Psychomotor is decreased. There is no formal thought disorder noted. He is verbally spontaneous. Mood is depressed. Affect full range and appropriate. He is not psychotic, suicidal, homicidal today. Concentration is fair. Memory intact. Insight and judgment poor. DIAGNOSES: 1. Major depressive disorder, single episode, severe, without psychotic symptoms. 2. Posttraumatic stress disorder. 3. Alcohol use disorder. TREATMENT PLAN: At this point, we will continue to monitor the patient for continued elevation and stabilization of his mood, and continued resolution of his suicidal ideation. He has been placed on Zoloft 25 mg daily and so that will also be titrated as indicated.
[2020-01-14 22:00] VITALS: BP 119/71
[2020-01-15 06:43] VITALS: BP 135/88
[2020-01-15] MEDS: DIVALPROEX 250 MG TAB PO SCH (08:25)
[2020-01-15] MEDS: SERTRALINE HCL 25 MG TABLET PO SCH (08:25)
[2020-01-15] MEDS: FOLIC ACID 1 MG TAB PO SCH (08:25)
[2020-01-15] MEDS: THIAMINE 100 MG TAB PO SCH (08:25)
[2020-01-15] MEDS: MULTIVITAMINS/MINERALS THERAP 1 TAB PO SCH (08:25)
--- NOTE | 2020-01-15 09:34 | MHDSPDOC ---
[facility] Discharge Summary Discharge Summary DATE OF ADMISSION: Jan 13, 2020 at 04:12 DATE OF DISCHARGE: Jan 15, 2020 at 12:15 DISCHARGE DIAGNOSES: Unspecified depressive disorder alcohol use disorder REASON FOR ADMISSION: 49-year-old man admitted for depression and substance use CONSULTANTS INVOLVED:[ None (basic hospitalist screening)] TREATMENT AND PROGRESS ON THE UNIT : Medication changes: started on sertraline 25 mg daily, made great progress and became much more amenable and less depressed Behavior on unit: friendly and engaged Treatment attendance: attended well Notable issues on presentation: none State on discharge: [improved] DISCHARGE ASSESSMENT: The patient a 49 year old man, with likely depression and alcohol problems, presented to [facility], where they treated with appropriate agents resolving well. Legal status considerations: The patient at the time of discharge did not meet criteria for involuntary admission/extension due to having a [normal] mental status exam, [fair] insight into the situation, They are engaged in the discharge process, as well as being friendly and amenable in behavioral control and havent been engaging in any observed concerning behavior or ideation recently. They decline voluntary extension/admission at this time and must be discharged in good jonel, as Im unable to make a case for holding the patient against their will. They may have historical risk factors of admissions and other interactions with psychiatry however, those are not modifiable from a clinical perspective. The patient will need to be discharged in good jonel. MENTAL STATUS EXAMINATION ON DISCHARGE: [General: Well dressed with good hygiene Speech: Spontaneous and fluid Thought processes: Linear and logical Thought content: Future orientated Abstract reasoning, and computation: Intact Description of associations: Intact Description of abnormal or psychotic thoughts:Denies any suicidal or homicidal ideation. Denies any auditory or visual hallucinations. Does not appear to be responding to internal stimuli. Does not appear to be endorsing any bizarre or paranoid ideation. Judgment: fair Insight: fair Orientation: Alert and orientated 3 Recent and remote memory: Intact Attention span and concentration: Intact Fund of knowledge: Adequate Mood: "okay" Affect: Euthymic with a full range] PLAN/FOLLOWUP ARRANGEMENTS: Follow up appointments made (PCP and MH in 5 days of D/C date) and safety plan completed. Safety Planning aspects completed prior to discharge [Medication supplies limited to 7 days with 4 refills to prevent accumulation to OD] [Family contact completed, educated on safe practices, instructed on removal and mitigation of dangerous means] [RN reviewed crisis hotline information and other aspects to empower patient to access care in interim before next appointment.] The amount of time spent in the coordination of care for this patient was approximately 30 minutes. Vital Signs/I&Os Vital Signs Date Time Temp Pulse Resp B/P (MAP) Pulse Ox O2 Delivery O2 Flow Rate FiO2 01/15/20 06:43 97.5 99 16 135/88 (104) Room Air 01/14/20 06:41 96 Medications Scheduled Divalproex Sodium (Divalproex Sodium) 250 Mg Tablet.dr, 750 MG PO BID, (Reported) Sertraline HCl (Sertraline HCl) 25 Mg Tablet, 25 MG PO DAILY for mood for 7 Days, #7 Scheduled PRN Naproxen Sodium (Aleve) 220 Mg Tablet, 220 MG PO BID PRN for PAIN / FEVER, (Reported) Nicotine (Nicotine Patch) 21 Mg Patch.td24, 1 PATCH TD DAILYPRN PRN for NICOTINE WITHDRAWAL for 30 Days, #30 Allergies Coded Allergies: levetiracetam (Verified Allergy, Intermediate, depression, 01/13/20) varenicline (Verified Adverse Reaction, Unknown, seizures, 01/13/20) seizures DALLIN RUIZ DO Jan 15, 2020 09:34
[2020-01-15] MEDS ORDERED: NICO21PAT TD (09:56)
[2020-01-15] MEDS ORDERED: SERT25TA21 PO (09:56)
== END 2020-01-15 12:15 | disposition home or self-care (01) | DRG 754 ==
LOC: M ED 00:56 → M ED INP 04:12 → M PSY 05:17
PROVIDERS: ADMIT Psychiatry & Neurology Psychiatry; ATTEND Psychiatry & Neurology Psychiatry
DX: F32.9 Major depressive disorder, single episode, unspecified (principal); G40.909 Epilepsy, unspecified, not intractable, without status epilepticus; R45.851 Suicidal ideations; F10.10 Alcohol abuse, uncomplicated; Z88.8 Allergy status to other drugs, medicaments and biological substances; F17.200 Nicotine dependence, unspecified, uncomplicated

== ENCOUNTER → 2020-08-15 | Outpatient (CLI) | payer BC ==
[~2020-08-15] MED LIST changes: +ALEV220T22 PO; +MELO15TA28 PO; +NICO21PAT TD; +OMEP40CA97 PO; +SERT25TA21 PO
== END ==
LOC: M LABSMTC 10:12
PROVIDERS: ATTEND Anesthesiology
DX: Z01.812 Encounter for preprocedural laboratory examination (principal); Z20.822 Contact with and (suspected) exposure to COVID-19

== ENCOUNTER 2020-08-18 11:47 | Emergency (ER) | payer BC ==
[~2020-08-18] VITALS: Ht 182.9 cm; Wt 104.3 kg
[~2020-08-18 11:47] MED LIST changes: -MELO15TA28 PO; -OMEP40CA97 PO
[2020-08-18] MEDS ORDERED: MELO15TA28 PO (12:14)
[2020-08-18] MEDS ORDERED: OMEP40CA97 PO (12:14)
--- NOTE | 2020-08-18 12:50 | REP ---
INDICATION: CHEST PAIN. COMPARISON: Comparison chest x-ray 04/01/2019. TECHNIQUE: Portable upright AP chest radiograph. Two views. FINDINGS: The lungs are well inflated and free of infiltrate. Pleural angles are sharp. Heart size is normal. Pulmonary vasculature is not increased. Monitoring electrodes are seen. IMPRESSION: No active disease. <Electronically signed by Benson Judd > 08/18/20 [id number]
[2020-08-18 12:55] LABS: BASO # 0.1 10^3/uL (0.0-0.2); BASO % 0.9 % (0.0-1.0); EOS # 0.1 10^3/uL (0.0-0.5); EOS % 1.2 % (0.0-3.0); HEMATOCRIT 44.9 % (42.0-52.0); HEMOGLOBIN 15.2 g/dl (13.5-17.5); LYMPH # 2.1 10^3/uL (1.5-5.0); LYMPH % 36.2 % (24.0-44.0); MEAN CORPUSCULAR HEMOGLOBIN 30.9 pg (27.0-33.0); MEAN CORPUSCULAR HGB CONC 33.9 g/dl (32.0-36.5); MEAN CORPUSCULAR VOLUME 91.3 fl (80.0-96.0); MONO # 0.5 10^3/uL (0.0-0.8); MONO % 8.7 % (0.0-5.0); NEUTROPHILS # 3.1 10^3/uL (1.5-8.5); NEUTROPHILS % 52.8 % (36.0-66.0); PLATELET COUNT, AUTOMATED 153 10^3/uL (150-450); RED BLOOD COUNT 4.92 10^6/uL (4.30-6.10); WHITE BLOOD COUNT 5.8 10^3/uL (4.0-10.0)
[2020-08-18 13:26] LABS: BLOOD UREA NITROGEN 15 MG/DL (7-18); CREATININE FOR GFR 0.83 MG/DL (0.70-1.30); GLOMERULAR FILTRATION RATE > 60.0 (>60); GLUCOSE, FASTING 93 MG/DL (70-100)
[2020-08-18 13:27] LABS: ALBUMIN 3.7 GM/DL (3.2-5.2); ALT/SGPT 49 U/L (12-78); BILIRUBIN,DIRECT < 0.1 MG/DL (0.0-0.2); BILIRUBIN,TOTAL 0.3 MG/DL (0.2-1.0); CALCIUM LEVEL 8.6 MG/DL (8.5-10.1); CARBON DIOXIDE LEVEL 27 MEQ/L (21-32); CHLORIDE LEVEL 109 MEQ/L (98-107); CK-MB VALUE MASS 1.9 NG/ML (<3.6); CPK CREATINE PHOSPHOKINASE 350 U/L (39-308); ETHYL ALCOHOL (ETHANOL) < 0.003 % (0.000-0.010); LIPASE 129 U/L (73-393); MB/CK RELATIVE INDEX 0.54 (< OR =4); POTASSIUM SERUM 4.3 MEQ/L (3.5-5.1); SODIUM LEVEL 142 MEQ/L (136-145); TOTAL PROTEIN 6.9 GM/DL (6.4-8.2); TROPONIN I < 0.02 NG/ML (< 0.10); VALPROIC ACID (DEPAKOTE) 79.1 UG/ML (50.0-100.0)
[2020-08-18 16:02] LABS: CK-MB VALUE MASS 1.6 NG/ML (<3.6); CPK CREATINE PHOSPHOKINASE 351 U/L (39-308); MB/CK RELATIVE INDEX 0.46 (< OR =4); TROPONIN I < 0.02 NG/ML (< 0.10)
[2020-08-18 16:23] VITALS: BP 167/98
--- NOTE | 2020-08-18 20:13 | ECGEPIP ---
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
--- NOTE | 2020-08-18 20:16 | ECGEPIP ---
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
== END 2020-08-18 16:20 | disposition home or self-care (01) ==
LOC: EDBD 11:47 → M ED 11:47
DX: R07.89 Other chest pain (principal); R56.9 Unspecified convulsions; F10.10 Alcohol abuse, uncomplicated; F32.9 Major depressive disorder, single episode, unspecified; Z79.899 Other long term (current) drug therapy; Z88.8 Allergy status to other drugs, medicaments and biological substances

== ENCOUNTER 2020-08-20 12:09 | Day surgery (SDC) | payer BC ==
[~2020-08-20] VITALS: Ht 182.9 cm; Wt 103.4 kg
[~2020-08-20 12:09] MED LIST changes: +MELO15TA28 PO; +OMEP40CA97 PO
--- OUTSIDE RECORDS SUMMARY | 2020-08-20 12:22 | CCD | Continuity of Care Document ---
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 Phone [facility] AUTM Francie vailable Problems Active Problems Provider Date Neck pain NORMAN Olivera Onset: 08/07/2020 Social History Type Date Description Comments Sex Unknown ETOH Use Currently consumes alcohol Tobacco Use Start: Unknown Heavy tobacco smoker (more than 10 cigarettes/day) Recreational Drug Use Denies Drug Use Allergies, Adverse Reactions, Alerts Active Allergies Reaction Severity Comments Date Chantix 08/07/2020 Medications Active Medications SIG Qnty Indications Ordering Provide r Date Esomeprazole Magnesium 40mg Capsul es DR 1 by mouth every day Unknown Divalproex Sodium ER 250mg Tablets ER 24HR 3 tab by mouth twice a day Unknown 0 Sertraline HCL 25mg Tablets 1 by mouth every day Unknown Meloxicam 15mg Tablets one ta bs a day Unknown Immunizations Description No Information Available Vital Signs Date Vital Result Comment 08/07/2020 1:31pm Body Temperature 98.4 F Results Description No Information Available Procedures Description No Information Available Medical Devices Description No Information Available Encounters Description No Information Available Assessments Date Code Description Provider 08/07/2020 M54.2 Cervicalgia ISMA Olivera 08/07/2020 M54.12 Radiculopathy, cervical region J NORMAN Neal Plan of Treatment 08/07/2020 - NORMAN Olviera* M54.2 Cervicalgia* New Xrays:* Shoulder Comp-2 Or More VWS RT, Ordered: 08/07/20 * Follow up:* with your primary care provider or neck specialist * Instructions:* Contact your primary care in the next couple of days to start cervical spine evaluation. Go immediately to the emergency room with any deterioration (weakness, numbness or aggravation of pain). After finishing neck evaluation and treatment if you still have pain in shoulder region please return for farther evaluation and treatment. * M54.12 Radiculopathy, cervical region Functional Status Description No Information Available Mental Status Description No Information Available Referrals Description No Information Available
--- OUTSIDE RECORDS SUMMARY | 2020-08-20 12:22 | CCD ---
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 Name Role Phone Lauro Silverman RPA Unavailable Unavailable Herrera, M Mariann RPA Unavailable Unavailable Herrera, M Mariann RPA Unavailable Unavailable Herrera, M Mariann RPA Unavailable Unavailable Herrera, M Mariann RPA Unavailable Unavailable Herrera, M Mariann RPA Unavailable Unavailable Herrera, M Mariann RPA Unavailable Unavailable Herrera, M Mariann RPA Unavailable Unavailable Herrera, M Mariann RPA Unavailable Unavailable Herrera, M Mariann RPA Unavailable Unavailable Herrera, M Mariann RPA Unavailable Unavailable Herrera, M Mariann RPA Unavailable Unavailable Herrera, M Mariann RPA Unavailable Unavailable Herrera, M Mariann RPA Unavailable Unavailable Herrera, M Mariann RPA Unavailable Unavailable Herrera, M Mariann RPA Unavailable Unavailable Herrera, M Mariann RPA Unavailable Unavailable Herrera, M Mariann RPA Unavailable Unavailable Herrera, M Mariann RPA Unavailable Unavailable Herrera, M Mariann RPA Unavailable Unavailable Herrera, M Mariann RPA Unavailable Unavailable Herrera, M Mariann RPA Unavailable Unavailable Herrera, M Mariann RPA Unavailable Unavailable Herrera, M Mariann RPA Unavailable Unavailable Herrera, M Mariann RPA Unavailable Unavailable Herrera, M Mariann RPA Unavailable Unavailable Herrera, M Mariann RPA Unavailable Unavailable Herrera, M Mariann RPA Unavailable Unavailable Herrera, M Mariann RPA Unavailable Unavailable Herrera, M Mariann RPA Unavailable Unavailable Herrera, M Mariann RPA Unavailable Unavailable Herrera, M Mariann RPA Unavailable Unavailable Herrera, M Mariann RPA Unavailable Unavailable Herrera, M Mariann RPA Unavailable Unavailable Herrera, M Mariann RPA Unavailable Unavailable Herrera, M Mariann RPA Unavailable Unavailable Herrera, M Mariann RPA Unavailable Unavailable Herrera, M Mariann RPA Unavailable Unavailable Herrera, M Mariann RPA Unavailable Unavailable Herrera, M Mariann RPA Unavailable Unavailable Herrera, M Mariann RPA Unavailable Unavailable Herrera, M Mariann RPA Unavailable Unavailable Surya, Golden PA Unavailable Unavailable Surya, Golden PA Unavailable Unavailable Surya, Golden PA Unavailable Unavailable Surya, Golden PA Unavailable Unavailable Surya, Golden PA Unavailable Unavailable Surya, Golden PA Unavailable Unavailable Surya, Golden PA Unavailable Unavailable Surya, Golden PA Unavailable Unavailable Surya, Golden PA Unavailable Unavailable Surya, Golden PA Unavailable Unavailable Surya, Golden PA Unavailable Unavailable Surya, Golden PA Unavailable Unavailable Surya, Golden PA Unavailable Unavailable Surya, Golden PA Unavailable Unavailable Surya, Golden PA Unavailable Unavailable Surya, Golden PA Unavailable Unavailable Surya, Golden PA Unavailable Unavailable Surya, Golden PA Unavailable Unavailable Surya, Golden PA Unavailable Unavailable Surya, Golden PA Unavailable Unavailable Surya, Golden PA Unavailable Unavailable Surya, Golden PA Unavailable Unavailable Surya, Golden PA Unavailable Unavailable Surya, Golden PA Unavailable Unavailable Surya, Golden PA Unavailable Unavailable Surya, Golden PA Unavailable Unavailable Surya, Golden PA Unavailable Unavailable Surya, Golden PA Unavailable Unavailable Surya, Golden PA Unavailable Unavailable Surya, Golden PA Unavailable Unavailable Surya, Golden PA Unavailable Unavailable Surya, Golden PA Unavailable Unavailable Surya, Golden PA Unavailable Unavailable Surya, Golden PA Unavailable Unavailable Surya, Golden PA Unavailable Unavailable Surya, Golden PA Unavailable Unavailable Surya, Golden PA Unavailable Unavailable Surya, Golden PA Unavailable Unavailable Surya, Golden PA Unavailable Unavailable Surya, Golden PA Unavailable Unavailable Surya, Golden PA Unavailable Unavailable Surya, Golden PA Unavailable Unavailable Surya, Golden PA Unavailable Unavailable Surya, Golden PA Unavailable Unavailable Surya, Golden PA Unavailable Unavailable Surya, Golden PA Unavailable Unavailable Surya, Golden PA Unavailable Unavailable Surya, Golden PA Unavailable Unavailable Surya, Golden PA Unavailable Unavailable SUSANA ABL Unavailable Unavailable JAMISON Zeke RGANTN Unavailable Unavailable PARNES, Z MOSES MD Unavailable Unavailable PARNES, Z MOSES MD Unavailable Unavailable PARNES, Z MOSES MD Unavailable Unavailable PARNES, Z MOSES MD Unavailable Unavailable PARNES, Z MOSES MD Unavailable Unavailable PARNES, Z MOSES MD Unavailable Unavailable PARNES, Z MOSES MD Unavailable Unavailable PARNES, Z MOSES MD Unavailable Unavailable PARNES, Z MOSES MD Unavailable Unavailable PARNES, Z MOSES MD Unavailable Unavailable PARNES, Z MOSES MD Unavailable Unavailable PARNES, Z MOSES MD Unavailable Unavailable PARNES, Z MOSES MD Unavailable Unavailable PARNES, Z MOSES MD Unavailable Unavailable PARNES, Z MOSES MD Unavailable Unavailable PARNES, Z MOSES MD Unavailable Unavailable PARNES, Z MOSES MD Unavailable Unavailable PARNES, Z MOSES MD Unavailable Unavailable PARNES, Z MOSES MD Unavailable Unavailable PARNES, Z MOSES MD Unavailable Unavailable PARNES, Z MOSES MD Unavailable Unavailable PARNES, Z MOSES MD Unavailable Unavailable PARNES, Z MOSES MD Unavailable Unavailable PARNES, Z MOSES MD Unavailable Unavailable PARNES, Z MOSES MD Unavailable Unavailable PARNES, Z MOSES MD Unavailable Unavailable PARNES, Z MOSES MD Unavailable Unavailable PARNES, Z MOSES MD Unavailable Unavailable PARNES, Z MOSES MD Unavailable Unavailable PARNES, Z MOSES MD Unavailable Unavailable PARNES, Z MOSES MD Unavailable Unavailable PARNES, Z MOSES MD Unavailable Unavailable PARNES, Z MOSES MD Unavailable Unavailable PARNES, Z MOSES MD Unavailable Unavailable PARNES, Z MOSES MD Unavailable Unavailable PARNES, Z MOSES MD Unavailable Unavailable PARNES, Z MOSES MD Unavailable Unavailable PARNES, Z MOSES MD Unavailable Unavailable Re-disclosure Warning The records that you are about to access may contain information from federally-assisted alcohol or drug abuse programs. If such information is present, then the following federally mandated warning applies: This information has been disclosed to you from records protected by federal confidentiality rules (42 CFR part 2). The federal rules prohibit you from making any further disclosure of this information unless further disclosure is expressly permitted by the written consent of the person to whom it pertains or as otherwise permitted by 42 CFR part 2. A general authorization for the release of medical or other information is NOT sufficient for this purpose. The Federal rules restrict any use of the information to criminally investigate or prosecute any alcohol or drug abuse patient.The records that you are about to access may contain highly sensitive health information, the redisclosure of which is protected by Article 27-F of the [facility] Public Health law. If you continue you may have access to information: Regarding HIV / AIDS; Provided by facilities licensed or operated by the [facility] Office of Mental Health; or Provided by the [facility] Office for People With Developmental Disabilities. If such information is present, then the following [facility] mandated warning applies: This information has been disclosed to you from confidential records which are protected by state law. State law prohibits you from making any further disclosure of this information without the specific written consent of the person to whom it pertains, or as otherwise permitted by law. Any unauthorized further disclosure in violation of state law may result in a fine or mcc sentence or both. A general authorization for the release of medical or other information is NOT sufficient authorization for further disc losure. Family History Family Member Name Family Member Gender Family Member Status Date o f Status Description Data Source(s) Unknown Unknown Problem [facility] ([facility] paternal side Unknown Unknown Problem [facility] ([facility] Encounters Encounter Providers Location Date Indications Data Source(s ) Outpatient Attender: MOSES DAVENPORT MD 021 01:22:00 PM EST - 08/07/2020 01:22:00 PM EST [facility] Outpatient Attender: Golden KINNEY [facility] 07/31/2020 09:00:00 AM EST [facility] ([facility]) Outpatient Attender: Golden KINNEY [facility] 04/28/2020 01:20:00 PM EDT [facility] ([facility]) Outpatient Attender: Golden KINNEY [facility] 02/28/2020 09:20:00 AM EDT [facility] ([facility]) Outpatient Attender: YOUSIF SWIFT 01/29/2020 11:40:00 AM T [facility] Outpatient Attender: Golden KINNEY [facility] 01/22/2020 08:40:00 AM EDT [facility] ([facility]) Outpatient Attender: SUSANA BAL 01/01/2020 10:27:00 AM T [facility] Outpatient Attender: Mariann Silverman [facility]ULT [facility] 12/17/2019 07:40:11 PM EDT [facility] Outpatient Attender: Golden KINNEY [facility] 12/04/2019 03:40:00 PM EDT [facility] ([facility]) Outpatient Attender: Golden KINNEY Family [facility][1] 10/04/2019 11:20:00 AM EDT [facility] ([facility]) Outpatient Attender: Golden KINNEY Family [facility][1] 08/30/2019 08:00:00 AM EST [facility] ([facility]) Immunizations Vaccine Date Status Description Data Source(s) New in 2011. IIV4 04/28/2020 01:37:00 PM EDT completed [facility] ([facility]) Medications Medication Brand Name Start Date Product Form Dose Route Admi nistrative Instructions Pharmacy Instructions Status Indications Reaction Description Data Source(s) hydrocortisone acetate 10 MG/ML / Pramox ine hydrochloride 10 MG/ML Rectal Foam [Proctofoam-HC] Proctofoam HC 07/31/2020 12:00:00 AM EST active [facility] ([facility]) meloxicam 15 MG Oral Tablet Meloxicam 07/31/2020 12:00:00 AM EST ORAL active [facility] ([facility]) Immunization Administration Single Or Combination 04/28/2020 12:00:00 AM EDT completed [facility] ([facility]) Medication administered onsite Esomeprazole 40 MG Delayed Release Oral Capsule Esomeprazole Magnesium 02/28/2020 12:00:00 AM EDT ORAL active [facility] ([facility]) Escitalopram 5 MG Oral Tablet Escitalopram Oxalate 12/04/2019 12:00 :00 AM EDT ORAL completed [facility] ([facility]) Amoxicillin 875 MG / Clavulanate 125 MG Oral Tablet Am oxicillin/Clavulanate Potassium 08/30/2019 12:00:00 AM EST ORAL completed [facility] ([facility]) Oseltamivir 75 MG Oral Capsule [Tamiflu] Tamiflu 08/03/2019 12:00: 00 AM EST ORAL completed [facility] ([facility]) Insurance Providers Payer name Policy type / Coverage type Policy ID Covered republican ID Covered republican's relationship to saucedo Policy [place] Plan Information [employer]BS FEDERAL 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 PROGRAM [id number] SP [id number] [facility] [id number] BCBS OF [facility] [id number] S [id number] BCBS FEDERAL EMPLOYEE PROGRAM [id number] SP [id number] [place] PPO 302/307 [id number] SP [id number] SELF PAY ONLY SP [facility] [id number] SP [id number] BS Of [facility] Health Maintenance Organization (O) [id number] Self [id number] [facility] [id number] SP [id number] PURA [id number] SP [id number] [facility] Community Plan Commercial [id number] Self [id number] [facility] O [id number] S [id number] PURA [facility] O [id number] S [id number] BCBS OF [place] 306/[id number] SP [id number] [facility]AN [facility] [id number] SP [id number] [employer] WC O [id number] S [id number] O UNAVAILABLE UNAVAILA BLE [employer] Self [employer] [id number] SP [id number] BS Of [facility] Health Maintenance Organization (O) Self MEDICAID [id number] SP [id number] SELF PAY UNAVAILABLE UNAVAILA BLE [place] [employer] [id number] SP [id number] [facility] [id number] SP [id number] Problems, Conditions, and Diagnoses Code Display Name Description Problem Type Effective Dates Data Source(s) 08536922 Neck pain Neck pain Problem 08/07/2020 12:00:00 AM ES T [facility] ([facility]) [id number] Depressive disorder Depressive disorder Problem 0 01/22/2020 12:00:00 AM EDT [facility] ([facility]) [id number] Posttraumatic stress disorder Posttraumatic stress dis order Problem 01/22/2020 12:00:00 AM EDT [facility] ([facility]) F43.10 Post-traumatic stress disorder, unspecif ied POST-TRAUMATIC STRESS DISORDER, UNSPECIFIED Diagnosis 01/29/2020 11:40:00 AM EDT [facility] Results ID Date Data Source [id number] 08/15/2020 11:00:00 AM EST [facility] Name Value Range Interpretation Code Description Data Aracelis rce(s) Supporting Document(s) SARS coronavirus 2 RNA Not Detected [facility] This lab was ordered by [facility] and reported by [facility]. ID Date Data Source [id number] 12/09/2019 04:15:00 PM EDT [facility] ([facility]) Name Value Range Interpretation Code Description Data Aracelis rce(s) Supporting Document(s) Valproate [Mass/volume] in Serum or Plasma 67.1 UG/ML 50.0- 100.0 Normal (applies to non-numeric results) [facility] ([facility]) ID Date Data Source [id number] 10/07/2019 09:18:00 AM EDT [facility] ([facility]) Name Value Range Interpretation Code Description Data Aracelis rce(s) Supporting Document(s) Red Blood Count 5.24 10 4.30-6.10 Normal (applies to non-numeric results) [facility] ([facility]) Hemoglobin 17.0 g/dL 13.5-17.5 Normal (applies to non-numeric resul ts) [facility] White Blood Count 6.7 10 4.0-10.0 Normal (applies to non-numeri c results) [facility]) Mean Corpuscular Volume 92.9 fl 80.0-96.0 Normal ( applies to non-numeric results) [facility] ([facility]) Mean Corpuscular Hemoglobin 32.4 pg 27.0-33.0 Norm al (applies to non-numeric results) [facility] ([facility]) Hematocrit 48.7 % 42.0-52.0 Normal (applies to non-numeric resul ts) [facility] ([facility]) Mean Corpuscular HGB Conc 34.9 g/dL 32.0-36.5 Normal (applies to non-numeric results) [facility] ([facility]) Platelet Count, Automated 211 10 150-450 Normal (applies to non-numeric results) [facility] ([facility]) Red Cell Distribution Width 12.5 % 11.5-14.5 Norm al (applies to non-numeric results) [facility] ([facility]) [place] % 8.6 % 0.0-5.0 Above high normal [facility] ([facility]) Neutrophils % 56.5 % 36.0-66.0 Normal (applies to non-numeric re sults) [facility] ([facility]) Lymph % 32.8 % 24.0-44.0 Normal (applies to non-numeric resul ts) [facility] ([facility]) Immature Granulocyte % 0.3 % 0-3.0 Normal (applies to non-n umeric results) [facility] ([facility]) Eos % 0.9 % 0.0-3.0 Normal (applies to non-numeric resul ts) [facility] ([facility]) Baso % 0.9 % 0.0-1.0 Normal (applies to non-numeric resul ts) [facility] ([facility]) Nucleated Red Blood Cell % 0.0 % 0-0 Normal (applies to n on-numeric results) [facility] ([facility]) Neutrophils # 3.8 10 1.5-8.5 Normal (applies to non-numeric re sults) [facility] ([facility]) [place] # 0.6 10 0.0-0.8 Normal (applies to non-numeric resul ts) [facility] ([facility]) Lymph # 2.2 10 1.5-5.0 Normal (applies to non-numeric resul ts) [facility] Baso # 0.1 10 0.0-0.2 Normal (applies to non-numeric resul ts) [facility]) Eos # 0.1 10 0.0-0.5 Normal (applies to non-numeric resul ts) [facility]) ID Date Data Source [id number] 10/07/2019 09:18:00 AM EDT [facility] ([facility]) Name Value Range Interpretation Code Description Data Aracelis rce(s) Supporting Document(s) PSA Comment Laboratory test result Normal (applies to non- numeric results) [facility]) . The percent free PSA is performed on a reflex basis only when the total PSA is between 4.0 and 10.0 ng/mL. Performed at: - [facility] [id number] Fly Worker: Fior Enriquez MD, Phone: [phone] PSA Total 0.8 ng/mL 0.0-4.0 Normal (applies to non-numeric resul ts) [facility]) Rich ECLIA methodology. . According to the [place] [employer], Serum PSA should decrease and remain at undetectable levels after radical prostatectomy. The AUA defines biochemical recurrence as an initial PSA value 0.2 ng/mL or greater followed by a subsequent confirmatory PSA value 0.2 ng/mL or greater. Values obtained with different assay methods or kits cannot be used interchangeably. Results cannot be interpreted as absolute evidence of the presence or absence of malignant disease. ID Date Data Source [id number] 10/07/2019 09:18:00 AM EDT [facility] ([facility]) Name Value Range Interpretation Code Description Data Aracelis rce(s) Supporting Document(s) Free T4 1.04 ng/dL 0.76-1.46 Normal (applies to non-numeric resul ts) [facility] Thyroid Stimulating Hormone 1.640 uIU/ML 0.358-3.740 Norm al (applies to non- numeric results) [facility]) ID Date Data Source [id number] 10/07/2019 09:18:00 AM EDT [facility] ([facility]) Name Value Range Interpretation Code Description Data Aracelis rce(s) Supporting Document(s) Valproate [Mass/volume] in Serum or Plasma 98.3 UG/ML 50.0- 100.0 Normal (applies to non-numeric results) [facility] ([facility]) ID Date Data Source [id number] 10/07/2019 09:18:00 AM EDT [facility] Name Value Range Interpretation Code Description Data Aracelis rce(s) Supporting Document(s) Triglycerides Level 185 mg/dL Above high normal [facility] ([facility]) Cholesterol Level 164 mg/dL Normal (applies to non-numeri c results) [facility] ([facility]) Non-HDL-C 133 mg/dL Normal (applies to non-numeric resul ts) [facility] HDL Cholesterol 31 mg/dL Below low normal [facility] ([facility]) LDL Cholesterol 96 mg/dL Normal (applies to non-numeric results) [facility] ([facility]) Cholesterol Risk Ratio 5.290 Above high normal [facility] ([facility]) ID Date Data Source [id number] 10/07/2019 09:18:00 AM EDT [facility]) Name Value Range Interpretation Code Description Data Aracelis rce(s) Supporting Document(s) Glucose, Fasting 81 mg/dL 70-100 Normal (applies to non-numeric results) [facility]) Glomerular Filtration Rate Laboratory test result Normal (applies to non- numeric results) [facility]) <content>Units are mL/min/1.73 m2</content>
<content></content>
<content>Chronic Kidney Disease Staging per NKF:</content>
<content></content>
<content>Stage I & II GFR >=60 Normal to Mildly Decreased</content>
<content>Stage III GFR 30- 59 Moderately Decreased</content>
<content>Stage IV GFR 15-29 Severely Decreased</content>
<content>Stage V GFR <15 Very Little GFR Left</content>
<content>ESRD GFR <15 on HEAD CUSTODIAN</content>
<content></content> Creatinine For GFR 0.79 mg/dL 0.70-1.30 Normal (applies to non -numeric results) [facility] ([facility]) Blood Urea Nitrogen 11 mg/dL 7-18 Normal (applies to non-nume julio results) [facility] ([facility]) Potassium Serum 4.4 meq/L 3.5-5.1 Normal (applies to non-numeric results) [facility] ([facility]) Carbon Dioxide Level 28 meq/L 21-32 Normal (applies to non-num chuy results) [facility] ([facility]) Sodium Level 140 meq/L 136-145 Normal (applies to non-numeric res ults) [facility] ([facility]) Chloride Level 108 meq/L 98-107 Above high normal [facility] ([facility]) Calcium Level 9.2 mg/dL 8.5-10.1 Normal (applies to non-numeric re sults) [facility] ([facility]) Ast/Sgot 37 U/L 7-37 Normal (applies to non-numeric resul ts) [facility] ([facility]) Anion Gap 4 meq/L 8-16 Below low normal [facility] Bilirubin,Total 0.5 mg/dL 0.2-1.0 Normal (applies to non-numeric results) [facility] ([facility]) Alt/SGPT 31 U/L 12-78 Normal (applies to non-numeric resul ts) [facility] ([facility]) Alkaline Phosphatase 42 U/L 45-117 Below low normal [facility] ([facility]) Albumin 3.8 GM/DL 3.2-5.2 Normal (applies to non-numeric resul ts) [facility] ([facility]) Total Protein 7.3 GM/DL 6.4-8.2 Normal (applies to non-numeric re sults) [facility] ([facility]) Albumin/Globulin Ratio 1.09 1.00-1.93 Normal (applies to non-numeric results) [facility] ([facility]) Procedure Vital Signs ID Date Data Source UNK Name Value Range Interpretation Code Description Data Source(s) Body surface area Derived from formula 2.27 m2 2.27 m2 [facility] ([facility]) Body weight 105.802 kg 105.802 kg [facility] ([facility]) [place] body weight 178 [lb_av] 178 [lb_av] [facility] T ([facility]) Body mass index (BMI) [Ratio] 31.6 kg/m2 31.6 k g/m2 [facility] ([facility]) Body weight 233.25 [lb_av] 233.25 [lb_av] [facility] T ([facility]) Body height 72 [in_i] 72 [in_i] [facility] ([facility]) 6'0" Heart rate 76 /min 76 /min [facility] Diastolic blood pressure 93 mm[Hg] 93 mm[Hg] [facility] ([facility]) Systolic blood pressure 159 mm[Hg] 159 mm[Hg] [facility] Body temperature 98.4 [degF] 98.4 [degF] [facility] ([facility]) [place] body weight 178 [lb_av] 178 [lb_av] [facility] T ([facility]) Oxygen saturation in Arterial blood by Pulse oximetry 96 % 96 % [facility] ([facility]) Body temperature 98.1 [degF] 98.1 [degF] [facility] ([facility]) Respiratory rate 20 /min 20 /min [facility] ( [facility]) Heart rate 82 /min 82 /min [facility] ([facility]) Body mass index (BMI) [Ratio] 30.9 kg/m2 30.9 k g/m2 [facility] ([facility]) Body weight 232.00 [lb_av] 232.00 [lb_av] [facility] T ([facility]) Body height 72.6 [in_i] 72.6 [in_i] [facility] ([facility]) 6'0.60" Diastolic blood pressure 88 mm[Hg] 88 mm[Hg] [facility] Systolic blood pressure 142 mm[Hg] 142 mm[Hg] M [facility] ([facility]) [place] body weight 178 [lb_av] 178 [lb_av] MEDEN T ([facility]) Oxygen saturation in Arterial blood by Pulse oximetry 96 % 96 % MEDENT ([facility]) Body temperature 97.5 [degF] 97.5 [degF] MEDENT ([facility]) Respiratory rate 20 /min 20 /min MEDENT ( [facility]) Heart rate 95 /min 95 /min MEDENT ([facility]) Body mass index (BMI) [Ratio] 30.3 kg/m2 30.3 k g/m2 MEDENT ([facility]) Body weight 227.25 [lb_av] 227.25 [lb_av] MEDEN T ([facility]) Body height 72.6 [in_i] 72.6 [in_i] MEDENT ([facility]) 6'0.60" Diastolic blood pressure 80 mm[Hg] 80 mm[Hg] MEDENT ([facility]) Systolic blood pressure 128 mm[Hg] 128 mm[Hg] M EDENT ([facility]) Oxygen saturation in Arterial blood by Pulse oximetry 94 % 94 % MEDENT ([facility]) Body temperature 97.9 [degF] 97.9 [degF] MEDENT ([facility]) Heart rate 80 /min 80 /min MEDENT ([facility]) Body weight 215.00 [lb_av] 215.00 [lb_av] MEDEN T ([facility]) Diastolic blood pressure 82 mm[Hg] 82 mm[Hg] MEDENT ([facility]) Systolic blood pressure 122 mm[Hg] 122 mm[Hg] M EDENT ([facility]) Oxygen saturation in Arterial blood by Pulse oximetry 96 % 96 % MEDENT ([facility]) Body temperature 97.9 [degF] 97.9 [degF] MEDENT ([facility]) Respiratory rate 20 /min 20 /min MEDENT ( [facility]) Heart rate 78 /min 78 /min MEDENT ([facility]) Body mass index (BMI) [Ratio] 28.4 kg/m2 28.4 k g/m2 MEDENT ([facility]) Body weight 213.00 [lb_av] 213.00 [lb_av] MEDEN T ([facility]) Body height 72.6 [in_i] 72.6 [in_i] MEDENT ([facility]) 6'0.60" Diastolic blood pressure 90 mm[Hg] 90 mm[Hg] MEDENT ([facility]) Systolic blood pressure 140 mm[Hg] 140 mm[Hg] M EDENT ([facility]) Oxygen saturation in Arterial blood by Pulse oximetry 96 % 96 % MEDENT ([facility]) Body temperature 98.1 [degF] 98.1 [degF] MEDENT ([facility]) Respiratory rate 18 /min 18 /min MEDENT ( [facility]) Heart rate 101 /min 101 /min MEDENT ([facility]) Body mass index (BMI) [Ratio] 28.5 kg/m2 28.5 k g/m2 MED[facility] ([facility]) Body weight 214.00 [lb_av] 214.00 [lb_av] MEDEN T ([facility]) Body height 72.6 [in_i] 72.6 [in_i] MEDENT ([facility]) 6'0.60" Diastolic blood pressure 78 mm[Hg] 78 mm[Hg] MEDENT ([facility]) Systolic blood pressure 128 mm[Hg] 128 mm[Hg] M EDENT ([facility]) Oxygen saturation in Arterial blood by Pulse oximetry 95 % 95 % MEDENT ([facility]) Body temperature 98.6 [degF] 98.6 [degF] [facility]ENT ([facility]) Respiratory rate 18 /min 18 /min MED[facility] ( [facility]) Heart rate 89 /min 89 /min MED[facility] ([facility]) Body mass index (BMI) [Ratio] 28.5 kg/m2 28.5 k g/m2 MEDENT ([facility]) Body weight 214.00 [lb_av] 214.00 [lb_av] THEODORA T ([facility]) Body height 72.6 [in_i] 72.6 [in_i] [facility] ([facility]) 6'0.60" Diastolic blood pressure 86 mm[Hg] 86 mm[Hg] [facility] Systolic blood pressure 128 mm[Hg] 128 mm[Hg] Lauro EPSTEIN ([facility]) Oxygen saturation in Arterial blood by Pulse oximetry 94 % 94 % [facility] ([facility]) Body temperature 98.8 [degF] 98.8 [degF] [facility] ([facility]) Respiratory rate 18 /min 18 /min [facility] ( [facility]) Heart rate 74 /min 74 /min [facility] ([facility]) Body mass index (BMI) [Ratio] 29.1 kg/m2 29.1 k g/m2 [facility] ([facility]) Body weight 218.12 [lb_av] 218.12 [lb_av] [facility] Body height 72.6 [in_i] 72.6 [in_i] [facility] ([facility]) 6'0.60" Diastolic blood pressure 80 mm[Hg] 80 mm[Hg] [facility] ([facility]) Systolic blood pressure 120 mm[Hg] 120 mm[Hg] Lauro EPSTEIN ([facility])
--- OUTSIDE RECORDS SUMMARY | 2020-08-20 12:22 | CCD | Continuity of Care Document ---
Author Author Jose Antonio GARCIA Organization Unknown Address [address] [place] [address] [address] [place] [address] Phone [phone] Care Team Providers Care Floor Coverer Name Role Phone Maria Del Carmen De La Torre D.O. AUTM [phone] [place] [address] Wellness Program AUTM [facility] AUTM Problems Active Problems Provider Date Epilepsy NIRMAL Chopra Onset: 05/09/2019 Cigarette smoker NIRMAL Chopra Onset: 05/09/2019 Posttraumatic stress disorder NIRMAL Chopra Onset: Depressive disorder NIRMAL Chopra Onset: 01/22/2020 Social History Type Date Description Comments Sex Unknown Tobacco Use Start: Unknown Heavy tobacco smoker (more than 10 cigarettes/day) Smoking Status Reviewed: 07/31/20 Heavy tobacco smoker (more than 10 cigarettes/day) ETOH Use Currently consumes alcohol Tobacco Use Start: Unknown Heavy tobacco smoker (more than 10 cigarettes/day) Recreational Drug Use Denies Drug Use Exercise Type/Frequency Does not exercise Sun Exposure Does not use sunscreen Seat Belt/Car Seat Always uses seat belt Allergies, Adverse Reactions, Alerts Active Allergies Reaction Severity Comments Date Chantix Seizures Severe 05/09/2019 Inactive Allergies NKDA 04/16/2019 Medications Active Medications SIG Qnty Indications Ordering Provide r Date Meloxicam 15mg Tablets take one table by mouth daily as needed 30tabs M25.511 Maria Del Carmen De La Torre DSarwat 07/31/2020 Proctofoam HC 1-1% Foam apply around rectum 2 times a day as needed 10gm K64.8 Maria Del Carmen smith D.OKathleen 07/31/2020 Esomeprazole Magnesium 40mg Capsul es DR 1 by mouth every day 90caps K21.9 Alexa Henderson.O. Divalproex Sodium 250mg Tablets DR take three tablets by mouth twice a day 540tabs Alexa Howard.OKathleen Medications Administered in Office Medication SIG Qnty Indications Ordering Provider Date Immunization Administration Single Or Co mbination Injection NIRMAL Chopra Immunizations CPT Code Status Date Vaccine Lot # [id number] Given 04/28/2020 Influenza Virus Vaccine, Quadrivalent, Split, Preservative Free [id number] Vital Signs Date Vital Result Comment 07/31/2020 10:02am BP Systolic 142 mmHg BP Diastolic 88 mmHg Height 72.6 inches 6'0.60" Weight 232.00 lb BMI (Body Mass Index) 30.9 kg/m2 Heart Rate 82 /min Respiratory Rate 20 /min Body Temperature 98.1 F O2 % BldC Oximetry 96 % [place] Body Weight 178 lb 04/28/2020 1:12pm BP Systolic 128 mmHg BP Diastolic 80 mmHg Height 72.6 inches 6'0.60" Weight 227.25 lb BMI (Body Mass Index) 30.3 kg/m2 Heart Rate 95 /min Respiratory Rate 20 /min Body Temperature 97.5 F O2 % BldC Oximetry 96 % [place] Body Weight 178 lb Results Description No Information Available Procedures Description No Information Available Medical Devices Description No Information Available Encounters Type Date Location Provider Dx Diagnosis Office Visit 04/28/2020 1:20p [facility] NIRMAL Chopra F33.1 Major depressive disorder, r ecurrent, moderate F43.10 Post-traumatic stress disord er, unspecified F17.210 Nicotine dependence, cigaret flakito, uncomplicated G40.409 Oth generalized epilepsy, no t intractable, w/o stat epi K21.9 Gastro-esophageal reflux dis ease without esophagitis H91.93 Unspecified hearing loss, bi lateral Z23 Encounter for immunization Office Visit 02/28/2020 9:20a [facility] NIRMAL Chopra F33.1 Major depressive disorder, r ecurrent, moderate F43.10 Post-traumatic stress disord er, unspecified F17.210 Nicotine dependence, cigaret flakito, uncomplicated K21.9 Gastro-esophageal reflux dis ease without esophagitis Assessments Date Code Description Provider 07/31/2020 G40.409 Other generalized ep ilepsy and epileptic syndromes, not intractable, without status epilepticus NIRMAL Chopra 07/31/2020 F43.10 Post-traumatic stress disorder, unspecified Golden Garcia, NIRMAL 07/31/2020 F33.1 Major depressive disorder, recur rent, moderate NIRMLA Chopra 07/31/2020 F17.210 Nicotine dependence, cigarettes, uncomplicated Golden Garcia, NIRMAL 07/31/2020 M25.511 Pain in right shoulder NIRMAL Chopra 07/31/2020 K64.8 Other hemorrhoids NIRMAL Jones 04/28/2020 F33.1 Major depressive disorder, recur rent, moderate NIRMAL Chopra 04/28/2020 F43.10 Post-traumatic stress disorder, unspecified NIRMAL Chopra 04/28/2020 F17.210 Nicotine dependence, cigarettes, uncomplicated NIRMAL Chopra 04/28/2020 G40.409 Other generalized ep ilepsy and epileptic syndromes, not intractable, without status epilepticus NIRMAL Chopra 04/28/2020 K21.9 Gastro-esophageal reflux disease without esophagitis NIRMAL Chopra 04/28/2020 H91.93 Unspecified hearing loss, bilate ral NIRMAL Chopra 04/28/2020 Z23 Encounter for immunization NIRMAL Irene 02/28/2020 F33.1 Major depressive disorder, recur rent, moderate NIRMAL Chopra 02/28/2020 F43.10 Post-traumatic stress disorder, unspecified NIRMAL Chopra 02/28/2020 F17.210 Nicotine dependence, cigarettes, uncomplicated NIRMAL Chopra 02/28/2020 K21.9 Gastro-esophageal reflux disease without esophagitis NIRMAL Chopra Plan of Treatment Future Appointment(s):* 10/29/2020 9:20 am - NIRMAL Chopra at [facility] 07/31/2020 - NIRMAL Chopra* G40.409 Other generalized epilepsy and epileptic syndromes, not intractable, without status epilepticus* Comments:* Continue with your current medication for the time being, and we will refill that today. * F43.10 Post-traumatic stress disorder, unspecified * F33.1 Major depressive disorder, recurrent, moderate * F17.210 Nicotine dependence, cigarettes, uncomplicated * M25.511 Pain in right shoulder* New Medication:* Meloxicam 15 mg - take one table by mouth daily as needed * Comments:* For the time being, we will refer you to orthopedics, and will call you in meloxicam to take. Call if there are any issues with the medication or other concerns. * Referral:* Golden Jiménez M.D., Orthopedic/Phys/Osteo * K64.8 Other hemorrhoids* New Medication:* Proctofoam HC 1-1 % - apply around rectum 2 times a day as needed * Comments:* For the time being, stop taking your Phillip, and we will prescribe proctofoam to help with your symptoms. Call if not improved in 1 week's time. * Referral:* Clarence Kathleen M.D., Surgery,General * Follow up:* 3 months with me for preventative. Functional Status Description No Information Available Mental Status Description No Information Available Referrals Refer to Reason for Referral Status Appt Date Golden Jiménez M.D. 50 year old with chronic rig ht shoulder pain. Please eval and treat. Created [facility] [address] [place] [address] [phone] Clarence Kathleen M.D. 50 year old male with BRBPR. Please eval and treat for screening colonoscopy. Created [address] [facility] [address] [place] [address] [phone] [facility] 50 year old male with percei darren hearing loss and tinnitus. Please eval and treat. Closed [facility] [address] [place] [address] [phone]
--- OUTSIDE RECORDS SUMMARY | 2020-08-20 12:22 | CCD | Continuity of Care Document ---
Author Author Jose Antonio GARCIA Organization Unknown Address [address] [place] [address] 6 [address] [place] [address] Phone [phone] Care Team Providers Care Valet Parking Attendant Name Role Phone Maria Del Carmen De La Torre D.O. AUTM [phone] [place] [address] Wellness Program AUTM [phone] [facility] AUTM Clarence Kathleen M.D. AUTM [phone] Golden Jiménez M.D. AUTM [phone] Problems Active Problems Provider Date Epilepsy NIRMAL [...] by mouth daily as needed 30tabs M25.511 Asha HendersonOKathleen 07/31/2020 Proctofoam HC 1-1% Foam apply around rectum 2 times a day as needed 10gm K64.8 Asha GreenOKathleen 07/31/2020 Esomeprazole Magnesium 40mg Capsul es DR 1 by mouth every day 90caps K21.9 Asha HendersonOKathleen Divalproex Sodium 250mg Tablets DR take three tablets by mouth twice a day 540tabs Alexa Howard.OKathleen Medications Administered in Office Medication SIG Qnty Indications Ordering Provider Date Immunization Administration Single Or Co mbination Injection NIRMAL Chopra Immunizations CPT Code Status Date Vaccine Lot # [id number] Given 04/28/2020 Influenza Virus Vaccine, Quadrivalent, Split, Preservative Free [id number] Vital Signs Date Vital Result Comment 07/31/2020 10:02am BP Systolic 142 mmHg BP Diastolic 88 mmHg Height 72.6 inches 6'0.60" Weight 232.00 lb BMI (Body Mass Index) 30.9 kg/m2 Heart Rate 82 /min Respiratory Rate 20 /min Body Temperature 98.1 F O2 % BldC Oximetry 96 % [place] Body Weight 178 lb 04/28/2020 1:12pm BP Systolic 128 mmHg BP Diastolic 80 mmHg Height 72.6 inches 6'0.60" Weight 227.25 lb BMI (Body Mass Index) 30.3 kg/m2 Heart Rate 95 /min Respiratory Rate 20 /min Body Temperature 97.5 F O2 % BldC Oximetry 96 % [place] Body Weight 178 lb Results Description No Information Available Procedures Description No Information Available Medical Devices Description No Information Available Encounters Type Date Location Provider Dx Diagnosis Office Visit 07/31/2020 10:00a [facility] NIRMAL Fowler G40.409 Oth generalized epilepsy, no t intractable, w/o stat epi F43.10 Post-traumatic stress disord er, unspecified F33.1 Major depressive disorder, r ecurrent, moderate F17.210 Nicotine dependence, cigaret flakito, uncomplicated M25.511 Pain in right shoulder K64.8 Other hemorrhoids Office Visit 04/28/2020 1:20p [facility] NIRMAL Chopra F33.1 Major depressive disorder, r ecurrent, moderate F43.10 Post-traumatic stress disord er, unspecified F17.210 Nicotine dependence, cigaret flakito, uncomplicated G40.409 Oth generalized epilepsy, no t intractable, w/o stat epi K21.9 Gastro-esophageal reflux dis ease without esophagitis H91.93 Unspecified hearing loss, bi lateral Z23 Encounter for immunization Office Visit 02/28/2020 9:20a [facility] NIRMAL Chopra F33.1 Major depressive disorder, r ecurrent, moderate F43.10 Post-traumatic stress disord er, unspecified F17.210 Nicotine dependence, cigaret flakito, uncomplicated K21.9 Gastro-esophageal reflux dis ease without esophagitis Assessments Date Code Description Provider 07/31/2020 G40.409 Other generalized ep ilepsy and epileptic syndromes, not intractable, without status epilepticus NIRMAL Chopra 07/31/2020 F43.10 Post-traumatic stress disorder, unspecified NIRMAL Chopra 07/31/2020 F33.1 Major depressive disorder, recur rent, moderate NIRMAL Chopra 07/31/2020 F17.210 Nicotine dependence, cigarettes, uncomplicated NIRMAL Chopra 07/31/2020 M25.511 Pain in right shoulder NIRMAL [...] 10/29/2020 9:20 am - NIRMAL Chopra at [facility] Functional Status Description No Information Available Mental Status Description No Information Available Referrals Refer to Reason for Referral Status Appt Date Golden Jiménez M.D. 50 year old with chronic rig ht shoulder pain. Please eval and treat. Sent [facility] [address] [place] [address] [phone] Clarence Kathleen M.D. 50 year old male with BRBPR. Please eval and treat for screening colonoscopy. Sent [address] [facility] [address] [place] [address] [phone] [facility] 50 year old male with percei darren hearing loss and tinnitus. Please eval and treat. Closed [facility] [address] [place] [address] [phone]
--- OUTSIDE RECORDS SUMMARY | 2020-08-20 12:22 | CCD | Continuity of Care Document ---
Author Author Jose Antonio KATHLEEN MD Organization Unknown Address [address] [address] Phone [phone] Care Team Providers Care Mixed Livestock Farmer Name Role Phone Surya Goldencarmita Florentino AUTM [phone] Problems Active Problems Provider Date Deviated nasal septum Jori Villalpando MD Onset: 11/19/2013 Chronic rhinitis Jori Villalpando MD Onset: 11/19/2013 Gastroesophageal reflux disease Jori Villalpando MD Onset: 0 11/19/2013 Obstructive sleep apnea syndrome Jori Villalpando MD Onset: 11/19/2013 Chronic purulent otitis media Jori Villalpando MD Onset: Perforation of tympanic membrane Jori Villalpando MD Onset: 12/20/2013 Chronic otitis media Jori Villalpando MD Onset: 02/12/2014 Chronic pansinusitis Jori Villalpando MD Onset: 03/27/2014 Sensorineural hearing loss, bilateral Jori Villalpando MD On set: 05/16/2014 Social History Type Date Description Comments Sex Unknown ETOH Use Sociable ON WEEKENDS Tobacco Use Start: Unknown Smokes 1 Pack A Day FOR 20 YEARS Recreational Drug Use Denies Drug Use Allergies, Adverse Reactions, Alerts Description No Known Drug Allergies Medications Active Medications SIG Qnty Indications Ordering Provide r Date Depakote 250mg Tablets DR 3 Tabs 2 X A Day Unknown Meloxicam 15mg Tablets 1 qd Unknown Omeprazole 20mg Capsules DR 1 prn Unknown Immunizations Description No Information Available Vital Signs Date Vital Result Comment 08/10/2020 8:41am BP Systolic 159 mmHg BP Diastolic 93 mmHg Heart Rate 76 /min Height 72 inches 6'0" Weight 233.25 lb BMI (Body Mass Index) 31.6 kg/m2 [place] Body Weight 178 lb Weight 105.802 kg BSA (Body Surface Area) 2.27 m2 05/16/2014 8:15am BP Systolic 133 mmHg BP Diastolic 88 mmHg Heart Rate 85 /min Height 73 inches 6'1" Weight 215.00 lb BMI (Body Mass Index) 28.4 kg/m2 [place] Body Weight 184 lb Weight 97.524 kg BSA (Body Surface Area) 2.22 m2 Results Description No Information Available Procedures Description No Information Available Medical Devices Description No Information Available Encounters Description No Information Available Assessments Description No Information Available Plan of Treatment 05/16/2014 - Jori Villalpando MD* 389.18 Sensorineural Hearing Loss Bilateral * All * New Medication:* Divalproex Sodium ER 500 mg - 2 tabs by mouth at qs Functional Status Description No Information Available Mental Status Description No Information Available Referrals Refer to Reason for Referral Status Appt Date Clarence Kathleen JR, MD HEMORRHOIDS Scheduled [address] [place] [address] [phone]
[2020-08-20] MEDS ORDERED: NS 1,000 ML IV ONE (13:30)
--- NOTE | 2020-08-20 14:14 | ROOR ---
Patient Name: Jose Antonio Sellers Procedure Date: 08/20/2020 1:38 PM Date of : 1970 Age: 50 Room: [facility] Gender: Male Note Status: Finalized Procedure: Colonoscopy Indications: Rectal bleeding Providers: Clarence Kathleen Jr, MD Referring MD: Maria Del Carmen ANDERSON DO Requesting Provider: Medicines: Propofol per Anesthesia Complications: No immediate complications. Procedure: Pre-Anesthesia Assessment: - Prior to the procedure, a History and Physical was performed, and patient medications and allergies were reviewed. The patient is competent. The risks and benefits of the procedure and the sedation options and risks were discussed with the patient. All questions were answered and informed consent was obtained. Patient identification and proposed procedure were verified by the physician and the nurse in the pre-procedure area and in the procedure room. Mental Status Examination: alert and oriented. Airway Examination: normal oropharyngeal airway and neck mobility. Respiratory Examination: clear to auscultation. CV Examination: normal. ASA Grade Assessment: II - A patient with mild systemic disease. After reviewing the risks and benefits, the patient was deemed in satisfactory condition to undergo the procedure. The anesthesia plan was to use moderate sedation / analgesia (conscious sedation). Immediately prior to administration of medications, the patient was re-assessed for adequacy to receive sedatives. The heart rate, respiratory rate, oxygen saturations, blood pressure, adequacy of pulmonary ventilation, and response to care were monitored throughout the procedure. The physical status of the patient was re-assessed after the procedure. The Colonoscope was introduced through the anus and advanced to the cecum, identified by appendiceal orifice and ileocecal valve. The colonoscopy was performed without difficulty. The patient tolerated the procedure well. The quality of the bowel preparation was adequate. Findings: The recto-sigmoid colon, descending colon, transverse colon, ascending colon, cecum, appendiceal orifice and ileocecal valve appeared normal. Multiple small and large-mouthed diverticula were found in the sigmoid colon. Two polyps were found in the rectum. The polyps were small in size. These polyps were removed with a cold snare. Resection and retrieval were complete. Non-bleeding external and internal hemorrhoids were found during retroflexion and during endoscopy. The hemorrhoids were Grade II (internal hemorrhoids that prolapse but reduce spontaneously) and Grade III (internal hemorrhoids that prolapse but require manual reduction). Impression: - The recto-sigmoid colon, descending colon, transverse colon, ascending colon, cecum, appendiceal orifice and ileocecal valve are normal. - Diverticulosis in the sigmoid colon. - Two small polyps in the rectum, removed with a cold snare. Resected and retrieved. - Non-bleeding external and internal hemorrhoids. Recommendation: - Discharge patient to home (ambulatory). - Repeat colonoscopy in 5-10 years for surveillance based on pathology results. Procedure Code(s): --- Professional --- 60250, Colonoscopy, flexible; with removal of tumor(s), polyp(s), or other lesion(s) by snare technique Diagnosis Code(s): --- Professional --- K64.2, Third degree hemorrhoids K62.1, Rectal polyp K62.5, Hemorrhage of anus and rectum K57.30, Diverticulosis of large intestine without perforation or abscess without bleeding CPT copyright 2019 [employer]. All rights reserved. The codes documented in this report are preliminary and upon securities settlement processor review may be revised to meet current compliance requirements. Clarence Kathleen MD Clarence Kathleen Jr, MD 08/20/2020 2:13:25 PM Electronically signed by Clarence Kathleen Jr, MD Number of Addenda: 0 Note Initiated On: 08/20/2020 1:38 PM Estimated Blood Loss: Estimated blood loss: none.
[2020-08-20 14:30] VITALS: BP 133/82
== END 2020-08-20 14:35 | disposition home or self-care (01) ==
LOC: M OPP 12:09
PROVIDERS: ATTEND Surgery
DX: K62.5 Hemorrhage of anus and rectum (principal); K63.5 Polyp of colon; K57.30 Diverticulosis of large intestine without perforation or abscess without bleeding; K64.2 Third degree hemorrhoids; G40.909 Epilepsy, unspecified, not intractable, without status epilepticus; G47.30 Sleep apnea, unspecified; K21.9 Gastro-esophageal reflux disease without esophagitis; F17.210 Nicotine dependence, cigarettes, uncomplicated; Z88.8 Allergy status to other drugs, medicaments and biological substances; Z79.899 Other long term (current) drug therapy

== ENCOUNTER 2021-01-30 12:15 | Emergency (ER) | payer BC ==
[~2021-01-30] VITALS: Ht 182.9 cm; Wt 106.8 kg
[~2021-01-30 12:15] MED LIST changes: +OMEP40CA4 PO; -OMEP40CA97 PO
[2021-01-30 13:12] LABS: BASO # 0.1 10^3/uL (0.0-0.2); BASO % 0.4 % (0.0-1.0); EOS % 0.1 % (0.0-3.0); HEMATOCRIT 49.2 % (42.0-52.0); HEMOGLOBIN 17.4 g/dl (13.5-17.5); LYMPH # 0.8 10^3/uL (1.5-5.0); MEAN CORPUSCULAR HEMOGLOBIN 32.5 pg (27.0-33.0); MEAN CORPUSCULAR HGB CONC 35.4 g/dl (32.0-36.5); MEAN CORPUSCULAR VOLUME 91.8 fl (80.0-96.0); NEUTROPHILS # 9.4 10^3/uL (1.5-8.5); NEUTROPHILS % 83.1 % (36.0-66.0); PLATELET COUNT, AUTOMATED 168 10^3/uL (150-450); RED BLOOD COUNT 5.36 10^6/uL (4.30-6.10); WHITE BLOOD COUNT 11.4 10^3/uL (4.0-10.0)
[2021-01-30] MEDS ORDERED: NS 1,000 ML IV ONE ×2 (13:15→14:35)
[2021-01-30 13:45] LABS: BLOOD UREA NITROGEN 13 MG/DL (7-18); CALCIUM LEVEL 8.9 MG/DL (8.5-10.1); CARBON DIOXIDE LEVEL 23 MEQ/L (21-32); CHLORIDE LEVEL 108 MEQ/L (98-107); CREATININE FOR GFR 1.05 MG/DL (0.70-1.30); GLOMERULAR FILTRATION RATE > 60.0 (>60); GLUCOSE, FASTING 168 MG/DL (70-100); POTASSIUM SERUM 3.8 MEQ/L (3.5-5.1); SODIUM LEVEL 141 MEQ/L (136-145); VALPROIC ACID (DEPAKOTE) 17.7 UG/ML (50.0-100.0)
[2021-01-30] MEDS ORDERED: VALPROATE SOD INJ 500 MG in D5W 50 ML IV ONE ×2 (14:30→16:30)
[2021-01-30 14:55] LABS: APPEARANCE, URINE CLOUDY (CLEAR); BACTERIA, URINE AUTO NEGATIVE (NEGATIVE); BILIRUBIN, URINE AUTO NEGATIVE (NEGATIVE); BLOOD, URINE BLOOD 1+ (NEGATIVE); COLOR, URINE YELLOW (YELLOW); GLUCOSE, URINE (UA) AUTO 1+ mg/dL (NEGATIVE); KETONE, URINE AUTO NEGATIVE (NEGATIVE); LEUKOCYTE ESTERASE, URINE AUTO NEGATIVE (NEGATIVE); MUCUS, URINE LARGE (NEGATIVE); NITRITE, URINE AUTO NEGATIVE (NEGATIVE); PROTEIN, URINE AUTO 2+ mg/dL (NEGATIVE); RBC, URINE AUTO 6 /HPF (0-3); SPECIFIC GRAVITY URINE AUTO 1.023 (1.002-1.035); SQUAMOUS EPITHELIAL CELL UR AU 0 /HPF (0-6); UROBILINOGEN, URINE AUTO 0.2 mg/dL (0.0-2.0); WBC, URINE AUTO 7 /HPF (0-3)
[2021-01-30] MEDS ORDERED: LORazepam 2 MG/ML VIAL IV STA (16:21)
[2021-01-30] MEDS ORDERED: LORazepam 2 MG/ML VIAL As Ordered ONE (16:23)
[2021-01-30 21:07] VITALS: BP 112/75
--- NOTE | 2021-01-30 21:32 | ECGEPIP ---
[facility] - ED Test Date: 2021-01-30 Pat Name: MAICOL MACIAS Department: Room: - Gender: Male Clinic Supervisor: : 1970 Requested By: SERENE AUSTIN Order Number: [id number] Reading MD: Pat Villarreal Measurements Intervals [place] Rate: 117 P: 56 CT: 146 QRS: 46 QRSD: 96 T: 62 QT: 344 QTc: 479 Interpretive Statements Sinus tachycardia NSTTW abnormalities increased rate 08/18/20 Electronically Signed on 01-30-2021 21:31:37 EDT by aPt Villarreal
[2021-02-01 11:01] LABS: PROLACTIN 3.8 NG/ML (2.1-17.7)
== END 2021-01-30 21:11 | disposition home or self-care (01) ==
LOC: EDBD 12:15 → M ED 12:15
DX: R56.9 Unspecified convulsions (principal); R00.0 Tachycardia, unspecified; F17.200 Nicotine dependence, unspecified, uncomplicated; Z79.899 Other long term (current) drug therapy; Z88.8 Allergy status to other drugs, medicaments and biological substances
CPT/HCPCS: 80048; 80164; 81001; 83605; 84146; 85025; 93005; 96365; 96368; 99285; J2060

== ENCOUNTER → 2021-02-12 | Outpatient (CLI) | payer BC | LOC: M LAB 09:33 | PROVIDERS: ATTEND Physician Assistant | DX: G40.409 Other generalized epilepsy and epileptic syndromes, not intractable, without status epilepticus (principal) ==

== ENCOUNTER → 2021-07-13 | Outpatient (CLI) | payer BC ==
[2021-07-13 16:17] LABS: BASO # 0.1 10^3/uL (0.0-0.2); BASO % 0.7 % (0.0-1.0); EOS # 0.1 10^3/uL (0.0-0.5); HEMATOCRIT 47.7 % (42.0-52.0); HEMOGLOBIN 15.8 g/dl (13.5-17.5); LYMPH # 2.8 10^3/uL (1.5-5.0); LYMPH % 25.1 % (24.0-44.0); MEAN CORPUSCULAR HEMOGLOBIN 31.9 pg (27.0-33.0); MEAN CORPUSCULAR HGB CONC 33.1 g/dl (32.0-36.5); MEAN CORPUSCULAR VOLUME 96.2 fl (80.0-96.0); MONO # 1.3 10^3/uL (0.0-0.8); MONO % 11.9 % (2.0-8.0); NEUTROPHILS # 6.7 10^3/uL (1.5-8.5); NEUTROPHILS % 60.9 % (36.0-66.0); PLATELET COUNT, AUTOMATED 189 10^3/uL (150-450); RED BLOOD COUNT 4.96 10^6/uL (4.30-6.10)
[2021-07-13 16:55] LABS: ALBUMIN 3.6 GM/DL (3.2-5.2); ALT/SGPT 29 U/L (12-78); BILIRUBIN,TOTAL 0.4 MG/DL (0.2-1.0); BLOOD UREA NITROGEN 9 MG/DL (7-18); CALCIUM LEVEL 9.2 MG/DL (8.5-10.1); CARBON DIOXIDE LEVEL 30 MEQ/L (21-32); CHLORIDE LEVEL 104 MEQ/L (98-107); CHOLESTEROL LEVEL 170 MG/DL (<200); CHOLESTEROL RISK RATIO 4.594 (<5); GLOMERULAR FILTRATION RATE > 60.0 (>60); GLUCOSE, FASTING 127 MG/DL (70-100); HDL CHOLESTEROL 37 MG/DL (>40); NON-HDL-C 133 MG/DL; SODIUM LEVEL 138 MEQ/L (136-145); TOTAL PROTEIN 7.2 GM/DL (6.4-8.2); TRIGLYCERIDES LEVEL 429 MG/DL (<150); VALPROIC ACID (DEPAKOTE) 96.5 UG/ML (50.0-100.0)
== END ==
LOC: M WUC 10:41
PROVIDERS: ATTEND Physician Assistant
DX: G40.B09 Juvenile myoclonic epilepsy, not intractable, without status epilepticus (principal); Z13.220 Encounter for screening for lipoid disorders
CPT/HCPCS: 36415; 80053; 80061; 80164; 85025; G0103

== ENCOUNTER → 2022-05-24 | Outpatient (CLI) | payer BC ==
[2022-05-24 11:58] LABS: BASO % 0.3 % (0.0-1.0); HEMOGLOBIN 14.7 g/dl (13.5-17.5); LYMPH # 1.7 10^3/uL (1.5-5.0); LYMPH % 17.3 % (24.0-44.0); MEAN CORPUSCULAR HEMOGLOBIN 31.5 pg (27.0-33.0); MEAN CORPUSCULAR HGB CONC 32.7 g/dl (32.0-36.5); MEAN CORPUSCULAR VOLUME 96.6 fl (80.0-96.0); MONO # 1.1 10^3/uL (0.0-0.8); MONO % 11.2 % (2.0-8.0); NEUTROPHILS # 6.8 10^3/uL (1.5-8.5); NEUTROPHILS % 70.9 % (36.0-66.0); PLATELET COUNT, AUTOMATED 211 10^3/uL (150-450); RED BLOOD COUNT 4.66 10^6/uL (4.30-6.10); WHITE BLOOD COUNT 9.7 10^3/uL (4.0-10.0)
[2022-05-24 12:38] LABS: ERYTHROCYTE SEDIMENTATION RATE 56 mm/hr (0-20)
[2022-05-24 15:42] LABS: ALT/SGPT 33 U/L (7.0-40); BILIRUBIN,TOTAL 0.4 MG/DL (0.3-1.2); BLOOD UREA NITROGEN 16 MG/DL (9-23); CALCIUM LEVEL 9.4 MG/DL (8.5-10.1); CARBON DIOXIDE LEVEL 25 MMOL/L (20-31); CHLORIDE LEVEL 103 MMOL/L (98-107); CREATININE FOR GFR 0.72 MG/DL (0.70-1.30); GLOMERULAR FILTRATION RATE > 60.0 (>56); GLUCOSE, FASTING 109 MG/DL (60-100); POTASSIUM SERUM 4.4 MMOL/L (3.5-5.1); SODIUM LEVEL 141 MMOL/L (136-145); TOTAL PROTEIN 6.5 G/DL; VALPROIC ACID (DEPAKOTE) 75.6 UG/ML (50.0-100.0)
== END ==
LOC: M RAD 10:01
PROVIDERS: ATTEND Family Medicine
DX: J20.9 Acute bronchitis, unspecified (principal); J18.9 Pneumonia, unspecified organism; G40.B09 Juvenile myoclonic epilepsy, not intractable, without status epilepticus; Z79.899 Other long term (current) drug therapy

== ENCOUNTER 2022-08-07 13:17 | Emergency (ER) | payer BC ==
[~2022-08-07] VITALS: Ht 182.9 cm; Wt 72.7 kg
[2022-08-07] MEDS ORDERED: LORazepam 2 MG/ML VIAL IV PRN (13:20)
[2022-08-07] MEDS ORDERED: ONDANSETRON 4MG 2ML VIAL IV ONE ×2 (13:50→14:05)
[2022-08-07 14:05] LABS: VENOUS BASE EXCESS -4.3 (-2.0-2.0); VENOUS HCO3 18.5 MEQ/L (23.0-27.0); VENOUS O2 SATURATION 76.7 % (60.0-80.0); VENOUS PARTIAL PRESSURE CO2 29.3 mmHg (38.0-50.0); VENOUS PARTIAL PRESSURE O2 38.8 mmHg (30.0-50.0); VENOUS PH 7.419 UNITS (7.330-7.430); VENOUS STANDARD HCO3 20.4 MEQ/L; VENOUS TOTAL CO2 19.4 MEQ/L (24.0-28.0)
[2022-08-07] MEDS ORDERED: MORPHINE 2 MG/ML 1ML VIAL IV ONE (14:05)
[2022-08-07 14:13] LABS: BASO # 0.1 10^3/uL (0.0-0.2); BASO % 0.5 % (0.0-1.0); EOS % 0.3 % (0.0-3.0); HEMATOCRIT 45.7 % (42.0-52.0); HEMOGLOBIN 15.9 g/dl (13.5-17.5); LYMPH # 1.7 10^3/uL (1.5-5.0); LYMPH % 17.8 % (24.0-44.0); MEAN CORPUSCULAR HEMOGLOBIN 31.6 pg (27.0-33.0); MEAN CORPUSCULAR HGB CONC 34.8 g/dl (32.0-36.5); MEAN CORPUSCULAR VOLUME 90.9 fl (80.0-96.0); MONO # 0.8 10^3/uL (0.0-0.8); MONO % 8.4 % (2.0-8.0); NEUTROPHILS # 6.9 10^3/uL (1.5-8.5); NEUTROPHILS % 72.7 % (36.0-66.0); PLATELET COUNT, AUTOMATED 233 10^3/uL (150-450); RED BLOOD COUNT 5.03 10^6/uL (4.30-6.10); WHITE BLOOD COUNT 9.5 10^3/uL (4.0-10.0)
[2022-08-07 14:34] LABS: ETHYL ALCOHOL (ETHANOL) 0.005 % (0.000-0.010)
[2022-08-07 14:37] LABS: ALBUMIN 3.8 G/DL (3.2-5.2); ALKALINE PHOSPHATASE 41 U/L (46-116); ALT/SGPT 20 U/L (7.0-40); AST/SGOT 25 U/L (<34); BILIRUBIN,DIRECT 0.2 MG/DL (<0.4); BILIRUBIN,TOTAL 0.5 MG/DL (0.3-1.2); BLOOD UREA NITROGEN 15 MG/DL (9-23); CALCIUM LEVEL 10.2 MG/DL (8.5-10.1); CARBON DIOXIDE LEVEL 19 MMOL/L (20-31); CHLORIDE LEVEL 104 MMOL/L (98-107); CREATININE FOR GFR 0.91 MG/DL (0.70-1.30); GLOMERULAR FILTRATION RATE > 60.0 (>56); GLUCOSE, FASTING 133 MG/DL (60-100); MAGNESIUM LEVEL 2.2 MG/DL (1.8-2.4); PHOSPHORUS LEVEL 1.7 MG/DL (2.5-4.9); POTASSIUM SERUM 4.1 MMOL/L (3.5-5.1); SODIUM LEVEL 139 MMOL/L (136-145); TOTAL PROTEIN 7.3 G/DL (5.7-8.2)
[2022-08-07] MEDS ORDERED: ACETAMINOPHEN 500 MG TAB PO ONE (15:25)
[2022-08-07 15:56] LABS: METHADONE URINE NEGATIVE (NEGATIVE); PHENCYCLIDINE URINE NEGATIVE (NEGATIVE)
[2022-08-07 15:57] LABS: AMPHETAMINES LEVEL URINE POSITIVE (NEGATIVE); BARBITURATES URINE NEGATIVE (NEGATIVE); BENZODIAZEPINES URINE NEGATIVE (NEGATIVE); CANNABINOIDS URINE NEGATIVE (NEGATIVE); COCAINE METABOLITE URINE NEGATIVE (NEGATIVE); OPIATES URINE POSITIVE (NEGATIVE)
[2022-08-07 16:56] VITALS: BP 149/92
== END 2022-08-07 17:02 | disposition home or self-care (01) ==
LOC: M ED 13:17
DX: R56.9 Unspecified convulsions (principal); E83.39 Other disorders of phosphorus metabolism; Z04.1 Encounter for examination and observation following transport accident; M50.322 Other cervical disc degeneration at C5-C6 level; M50.323 Other cervical disc degeneration at C6-C7 level; Z79.899 Other long term (current) drug therapy; Z88.8 Allergy status to other drugs, medicaments and biological substances
CPT/HCPCS: 70450; 72125; 80048; 80076; 80164; 80307; 82077; 82140; 82330; 82803; 83605; 83735; 84100; 85025; 93041; 94760; 96374; 96375; 99284; J2270; J2405

== ENCOUNTER → 2022-10-07 | Outpatient (CLI) | payer BC | LOC: M PLAIMG 08:43 | PROVIDERS: ATTEND Physician Assistant | DX: M47.12 Other spondylosis with myelopathy, cervical region (principal) ==

== ENCOUNTER 2023-05-09 13:15 | Emergency (ER) | payer BC ==
[~2023-05-09] VITALS: Ht 182.9 cm; Wt 102.3 kg
[2023-05-09 13:37] VITALS: TEMP 97.6
[2023-05-09] MEDS ORDERED: ASPIRIN 81MG CHEW TABLET PO ONE (13:40)
[2023-05-09] MEDS ORDERED: MORPHINE 4 MG/ML 1ML VIAL IV PRN (13:40)
[2023-05-09] MEDS ORDERED: ONDANSETRON 4MG 2ML VIAL IV ONE (13:40)
[2023-05-09 14:10] LABS: BASO # 0.1 10^3/uL (0.0-0.2); BASO % 1.1 % (0.0-1.0); EOS % 0.7 % (0.0-3.0); HEMATOCRIT 45.4 % (42.0-52.0); HEMOGLOBIN 16.2 g/dl (13.5-17.5); LYMPH # 2.3 10^3/uL (1.5-5.0); LYMPH % 39.4 % (24.0-44.0); MEAN CORPUSCULAR HGB CONC 35.7 g/dl (32.0-36.5); MEAN CORPUSCULAR VOLUME 89.7 fl (80.0-96.0); MONO # 0.6 10^3/uL (0.0-0.8); MONO % 10.2 % (2.0-8.0); NEUTROPHILS # 2.8 10^3/uL (1.5-8.5); NEUTROPHILS % 48.2 % (36.0-66.0); PLATELET COUNT, AUTOMATED 196 10^3/uL (150-450); RED BLOOD COUNT 5.06 10^6/uL (4.30-6.10); WHITE BLOOD COUNT 5.7 10^3/uL (4.0-10.0)
[2023-05-09] MEDS: NITROGLYCERIN 0.4MG SUBL TABLET SL PRN ×2 (14:14→14:22)
[2023-05-09 14:21] LABS: INR 1.04; PROTHROMBIN TIME 13.3 SECONDS (12.5-14.5)
[2023-05-09 14:22] VITALS: BP 130/78
[2023-05-09 14:28] LABS: ERYTHROCYTE SEDIMENTATION RATE < 1 mm/hr (0-20)
[2023-05-09 14:32] LABS: CK-MB VALUE MASS 1.7 NG/ML (<3.6); LIPASE 28 U/L (12-53)
[2023-05-09 14:34] LABS: ALBUMIN 3.8 G/DL (3.2-5.2); ALKALINE PHOSPHATASE 40 U/L (46-116); ALT/SGPT 37 U/L (7.0-40); AST/SGOT 27 U/L (<34); BILIRUBIN,DIRECT 0.3 MG/DL (<0.4); BILIRUBIN,TOTAL 0.4 MG/DL (0.3-1.2); BLOOD UREA NITROGEN 14 MG/DL (9-23); CALCIUM LEVEL 9.8 MG/DL (8.5-10.1); CARBON DIOXIDE LEVEL 24 MMOL/L (20-31); CHLORIDE LEVEL 107 MMOL/L (98-107); CREATININE FOR GFR 0.67 MG/DL (0.70-1.30); GLOMERULAR FILTRATION RATE > 60.0 (>56); GLUCOSE, FASTING 112 MG/DL (60-100); SODIUM LEVEL 142 MMOL/L (136-145); TOTAL PROTEIN 7.1 G/DL (5.7-8.2)
[2023-05-09 14:35] LABS: THYROID STIMULATING HORMONE 2.511 uIU/ML (0.55-4.78)
[2023-05-09 14:36] LABS: FREE T4 0.89 NG/DL (0.89-1.76)
[2023-05-09 14:39] LABS: CPK CREATINE PHOSPHOKINASE 163 U/L (46-171); MB/CK RELATIVE INDEX 1.04 (< OR =4)
[2023-05-09] MEDS ORDERED: ISOVUE-370 76% 100ML VIAL As Ordered ONE (15:50)
[2023-05-09 16:00] LABS: MB/CK RELATIVE INDEX 1.31 (< OR =4)
[2023-05-09 17:16] VITALS: BP 137/66; O2SAT 93
[2023-05-09] MEDS ORDERED: ASPI81TA26 PO (17:42)
== END 2023-05-09 17:50 | disposition home or self-care (01) ==
LOC: EDBD 13:15 → M ED 13:15
DX: R07.9 Chest pain, unspecified (principal); I25.2 Old myocardial infarction; F17.200 Nicotine dependence, unspecified, uncomplicated; G40.909 Epilepsy, unspecified, not intractable, without status epilepticus; F32.A Depression, unspecified; F10.10 Alcohol abuse, uncomplicated; Z88.9 Allergy status to unspecified drugs, medicaments and biological substances; Z79.82 Long term (current) use of aspirin; Z79.899 Other long term (current) drug therapy
CPT/HCPCS: 71045; 71275; 74177; 80048; 80076; 82550; 82553; 83690; 84439; 84443; 84484; 85025; 85610; 85652; 87040; 87486; 87581; 87633; 87798; 93005; 93041; 94760; 96374; 96375; 99285; J2405; Q9967

== ENCOUNTER → 2024-04-15 | Outpatient (CLI) | payer BC ==
[~2024-04-15] MED LIST changes: +ASPI81TA26 PO
== END ==
LOC: M WUC 15:08
PROVIDERS: ATTEND Physician Assistant
DX: M50.01 Cervical disc disorder with myelopathy, high cervical region (principal)